=== PATIENT | female | born 1965 | race Caucasian/White ===

== ENCOUNTER → 2017-09-20 09:55 | Outpatient (CLI) | payer OTHER, SELFPAY ==
[2017-09-21 17:05] LABS: Amphetamine/Metha Screen,Urine Negative ng/mL (<1000); Barbiturates Screen,Urine Negative ng/mL (<200); Benzodiazepines Screen,Urine Negative ng/mL (200); Cannabinoid Screen,Urine Negative ng/mL (<50); Cocaine Screen,Urine Negative ng/g (<300); Methadone Screen,Urine Negative ng/mL (<300); Opiate Screen,Urine Negative ng/mL (<300); Phencyclidine Screen,Urine Negative ng/mL (<25)
== END ==
PROVIDERS: Visit Provider Nurse Practitioner Family
DX: Z79.899 Other long term (current) drug therapy (principal)
CPT/HCPCS: 80305

== ENCOUNTER → 2017-09-20 15:24 | Outpatient (CLI) | payer OTHER, SELFPAY | LOC: RAD 15:27 → RT 15:30 | PROVIDERS: Family Provider Emergency Medicine; PCP Emergency Medicine; Visit Provider Surgery | DX: M79.604 Pain in right leg (principal); M79.89 Other specified soft tissue disorders | CPT/HCPCS: 93971 ==

== ENCOUNTER → 2017-09-21 09:55 | Outpatient (REF) | payer OTHER, SELFPAY | LOC: LAB 09:55 | PROVIDERS: Visit Provider Nurse Practitioner Family | DX: Z79.899 Other long term (current) drug therapy (principal) ==

== ENCOUNTER → 2017-10-04 12:36 | Outpatient (CLI) | payer OTHER, SELFPAY ==
--- NOTE | 2017-10-04 12:39 | MM_ITS ---
MM Dig mamm DX unilat RT CAD, US breast RT complete COMPARISON: Mammogram of 02/17 and 02/11/2016 as well as older ultrasound 02/15/2016. INDICATION: 6 month follow-up right breast, history of breast cancer ORDERING PHYSICIAN: Pawel Bob MD PATIENT AGE: 52 years TECHNIQUE: Standard images performed along with problem-solving views and right breast ultrasound FINDINGS: RIGHT MAMMOGRAM: There was some asymmetric density in the outer aspect of the right breast. This however did appear to compress out consistent with postsurgical changes. No discrete mass or malignant appearing microcalcification is evident. The asymmetric density in the lateral aspect of the right breast has somewhat decreased compared to the previous exam consistent with improvement in postsurgical scarring. No malignant appearing mass or malignant appearing microcalcification. RIGHT BREAST ULTRASOUND WITH AXILLA: COMPARISON is made to 03/08/2017. There is a 2.4 x 1.3 cm area of complex echogenicity with central lucency and peripheral decreased echogenicity at the 8:00 position. This is in the same spot as the previously noted fluid collection previously measuring 3.7 x 2 cm consistent with contraction of scarring with a small residual seroma/hematoma. IMPRESSION: Postsurgical changes lateral aspect of the right breast. No convincing evidence of malignancy On the ultrasound there is a residual 2.4 x 1.3 similar hypoechoic area with central anechoic region probably related to damion scar/hematoma. Continued follow-up recommended. This is smaller when compared to the previous exam BI-RADS Category: 3 Benign Finding Short Term Follow-up RECOMMENDED FOLLOW-UP: 6M - 6 MONTH FOLLOW-UP bilateral mammogram and right breast ultrasound (A letter has been sent to the patient regarding results of the study.)
== END ==
PROVIDERS: Family Provider Emergency Medicine; PCP Emergency Medicine; Visit Provider Surgery
DX: Z85.3 Personal history of malignant neoplasm of breast (principal)
CPT/HCPCS: 76641; 77065

== ENCOUNTER → 2017-11-01 13:02 | Outpatient (CLI) | payer OTHER, SELFPAY ==
[2017-11-01 13:41] LABS: Basophils # 0.1 K/mm3 (0-0.2); Basophils % 0.7 % (0.1-2.0); Eosinophils # 0.5 K/mm3 (0.0-0.4); Eosinophils % 7.2 % (0.1-12.0); Hematocrit 40.1 % (37.0-47.0); Lymphocytes # 2.1 K/mm3 (0.7-4.5); Mean Corpuscular HGB Conc 32.4 g/dL (31.8-35.4); Mean Corpuscular Hemoglobin 29.8 pg (27.0-31.2); Mean Corpuscular Volume 91.8 fl (81-99); Mean Platelet Volume 7.3 fl (7.4-10.4); Monocytes # 0.4 K/mm3 (0.1-1.0); Monocytes % 6.2 % (1.7-9.3); Neutrophils # 3.4 K/mm3 (1.8-7.8); Neutrophils % 52.9 % (37.0-80.0); Platelet Count 432 K/mm3 (142-424); Red Blood Count 4.37 M/mm3 (4.20-5.40); Red Cell Distribution Width 14.2 % (11.5-17.5); White Blood Count 6.4 K/mm3 (4.8-10.8)
[2017-11-01 13:53] LABS: Alanine Aminotransferase 20 U/L (12-78); Albumin Level 3.6 gm/dL (3.4-5.0); Albumin/Globulin Ratio 0.8 (1.1-1.8); Alkaline Phosphatase 89 U/L (46-116); Anion Gap 13.5 mEq/L (5-15); Aspartate Amino Transferase 16 U/L (15-37); Bilirubin,Total 0.1 mg/dL (0.2-1.0); Blood Urea Nitrogen 15 mg/dL (7-18); Carbon Dioxide 26 mmol/L (21.0-32.0); Chloride 103 mmol/L (98-107); Creatinine,Serum 0.87 mg/dL (0.55-1.02); Estimated Glomerular Filt Rate 68 ml/min (>60); GFR (African American) 83 ML/MIN (>60); Globulin 4.4 gm/dl (1.3-3.2); Glucose 91 mg/dL (74-106); Potassium 4.5 mmoL/L (3.5-5.1); Sodium 138 mmol/L (136-145); Thyroid Stimulating Hormone 2.48 uIU/ml (0.358-3.740)
== END ==
PROVIDERS: Visit Provider Nurse Practitioner
DX: C50.911 Malignant neoplasm of unspecified site of right female breast (principal); R53.83 Other fatigue; M19.90 Unspecified osteoarthritis, unspecified site
CPT/HCPCS: 36415; 80053; 84443; 85025

== ENCOUNTER → 2017-11-05 13:13 | Outpatient (CLI) | payer OTHER, SELFPAY ==
--- NOTE | 2017-11-05 13:30 | XR_ITS ---
XR DEXA axial skeleton HISTORY: ITS.REASON: OSTEOARTHRITIS,FATIGUE,BREAST CA ORDERING PHYSICIAN: Stephanie Meyers PATIENT AGE: 52 years COMPARISON: None FINDINGS: The BMD measured at the Right femoral neck is 0.817 g/cm squared with a T score of -1.6 . This is considered Osteopenic according to the World Health Organization criteria. Fracture risk is Moderate. Treatment is advised. L1 L4 density has a T score of -1.5 consistent with osteopenia IMPRESSION: Osteopenia with moderate fracture risk. Treatment is advised. Recommend follow-up exam November 2019
== END ==
PROVIDERS: Family Provider Emergency Medicine; PCP Emergency Medicine; Visit Provider Nurse Practitioner
DX: M19.90 Unspecified osteoarthritis, unspecified site (principal); R53.83 Other fatigue; C50.911 Malignant neoplasm of unspecified site of right female breast; M85.80 Other specified disorders of bone density and structure, unspecified site
CPT/HCPCS: 77080

== ENCOUNTER 2017-11-19 16:35 | Emergency (ER) | payer OTHER, SELFPAY ==
[2017-11-19 16:35] VITALS: BP 153/110; PULSE 94; RESP 18; TEMP 36.4; O2SAT 100; BMI 31.3
--- NOTE | 2017-11-19 16:47 | XR_ITS ---
XR shoulder LT min 2V COMPARISON: Left shoulder 04/01/2014 HISTORY: Left shoulder pain TECHNIQUE: 3 views left shoulder FINDINGS: The clavicle is intact and the AC joint appears normal. The humeral head and glenoid appear normal and there are no soft tissue calcifications. There are old healed fractures of the left third through eighth ribs posteriorly which are not seen on the previous shoulder film in March 2014. IMPRESSION: Grossly negative left shoulder
--- NOTE | 2017-11-19 18:04 | HMH.EDUPEXT ---
ED Disposition Clinical Impression: Sprain of left shoulder Disposition: Home, Self-Care Condition on Discharge: Good Instructions: Sprain Additional Instructions: Please alternate Motrin with Tylenol for pain control, apply an ice pack to the affected area, will keep the left upper extremity in a sling, follow-up with orthopedic surgeon listed in the discharge instructions if not better within 2 days. Referrals: Yoan Begum MD [Staff Physician] - Time of Disposition: 18:04 - Critical Care Critical Care Time: No Attestation: On 11/19/17, the high probability of a clinically significant, sudden or life threatening deterioration of the following system(s) required my full and direct attention, intervention and personal management. The time I documented below is in addition to time spent performing reported procedures but includes the following listed in this critical care notation. Medical Decision Making - Medical Records Medical records reviewed: Yes: I reviewed the patient's medical records. - Damaso Inquiry Pt receiving controlled substance: No Vital Signs: 11/19/17 16:35 Temperature 97.6 F Temperature Source Oral Pulse Rate [Left Radial] 94 H Respiratory Rate 18 Blood Pressure [Left Arm] 153/110 Blood Pressure Mean [Left Arm] 124 Blood Pressure Source [Left Arm] Automatic Cuff Blood Pressure Position [Left Arm] Sitting 02 Sat by Pulse Oximetry 100 Oxygen Delivery Method Room Air - Radiology Data #1 Image(s): Shoulder (Left) Image Reviewed: Yes I reviewed the patient's radiology image Preliminary Findings: Normal/NAD Upper Extremity HPI - General Chief Complaint: Extremity Injury, Upper Stated Complaint: AO 11/18/17 Left Shoulder Pain Time Seen by Provider: 11/19/17 18:05 Mode of Arrival: Ambulatory Limitations: No Limitations Description of Symptoms (Recalled from ER Triage Doc. by RN): Pt reports feels like her L shoulder is out of place, states was playing with her grandkids yesterday and injured it. - History of Present Illness HPI narrative: Patient was horse playing with grandchildren and injured her left shoulder. She has a history of previous left shoulder dislocation in the past. complaint: injury to: left Onset (ago): minute(s) (30) Other Extremity Injury: Left: shoulder Other injuries: none Handedness: right Place: home Severity: mild Severity scale (1-10): 2 Relieving factors: rest Exacerbating factors: movement of extremity Context: sports-related injury Associated symptoms: denies other symptoms - Related Data Home Medications Medication Instructions Recorded Confirmed albuterol sulfate HFA 90 2 puff INHALATION Q4H g 09/20/17 mcg/actuation aerosol inhaler divalproex ER 250 mg 500 mg PO ONCE 09/20/17 tablet,extended release 24 hr fluticasone 100 mcg-vilanterol 25 1 inh INHALATION Q24H 09/20/17 mcg/dose powder for inhalation sertraline 100 mg tablet 100 mg PO QDAY 09/20/17 Previous Rx's Medication Instructions Recorded gabapentin 400 mg capsule 400 mg PO TID #90 cap 09/20/17 hydroxyzine pamoate 25 mg capsule 25 mg PO QHS #30 cap 09/20/17 venlafaxine 75 mg tablet 75 mg PO BID #60 tab 11/14/17 mirtazapine 15 mg tablet 15 mg PO QHS #30 tab 11/16/17 Allergies Allergy/AdvReac Type Severity Reaction Status Date / Time Sulfa (Sulfonamide Allergy Unknown Verified 11/01/17 15:43 Antibiotics) [SULFA (SULFONAMIDE ANTIBIOTICS)] [facility] History I have reviewed the patient's past medical history: Yes Medical History: Reports:: Cancer (Breast Ca), Chronic Obstructive Pulmonary Disease (COPD), Migraine Denies:: Diabetes Mellitus Type 1, Diabetes Mellitus Type 2 Comment: anxiety, depression Laterality Cases: Right: Lumpectomy Other Surgeries: Yes: No Previous Surgery - Social History Smoking Status: Current every day smoker Tobacco Type: cigarettes Alcohol Intake: never - Psychiatric History Expresses thoughts
[2017-11-19 18:12] VITALS: BP 142/110; PULSE 92; RESP 16; TEMP 36.4; O2SAT 97
== END 2017-11-19 18:15 | disposition home or self-care (01) ==
PROVIDERS: Emergency Provider Emergency Medicine; Family Provider Emergency Medicine; PCP Emergency Medicine
DX: S43.402A Unspecified sprain of left shoulder joint, initial encounter (principal); F17.210 Nicotine dependence, cigarettes, uncomplicated; F41.8 Other specified anxiety disorders; J44.9 Chronic obstructive pulmonary disease, unspecified; Z88.2 Allergy status to sulfonamides; X50.0XXA Overexertion from strenuous movement or load, initial encounter; Y92.019 Unspecified place in single-family (private) house as the place of occurrence of the external cause
CPT/HCPCS: 73030; 99283

== ENCOUNTER → 2018-02-26 10:34 | Outpatient (REF) | payer OTHER, SELFPAY ==
[2018-02-26 14:35] LABS: Amphetamine/Metha Screen,Urine Negative ng/mL (<1000); Barbiturates Screen,Urine Negative ng/mL (<200); Benzodiazepines Screen,Urine Negative ng/mL (200); Cannabinoid Screen,Urine Negative ng/mL (<50); Cocaine Screen,Urine Negative ng/g (<300); Methadone Screen,Urine Negative ng/mL (<300); Opiate Screen,Urine Negative ng/mL (<300); Phencyclidine Screen,Urine Negative ng/mL (<25)
== END ==
LOC: LAB 10:34
PROVIDERS: Visit Provider Nurse Practitioner Family
DX: F41.9 Anxiety disorder, unspecified (principal); Z79.899 Other long term (current) drug therapy
CPT/HCPCS: 80305

== ENCOUNTER → 2018-03-29 09:35 | Outpatient (REF) | payer OTHER, SELFPAY ==
[2018-03-29 14:28] LABS: Amphetamine/Metha Screen,Urine Negative ng/mL (<1000); Barbiturates Screen,Urine Negative ng/mL (<200); Benzodiazepines Screen,Urine Negative ng/mL (<200); Cannabinoid Screen,Urine Negative ng/mL (<50); Cocaine Screen,Urine Negative ng/mL (<300); Methadone Screen,Urine Negative ng/mL (<300); Opiate Screen,Urine Negative ng/mL (<300); Phencyclidine Screen,Urine Negative ng/mL (<25)
== END ==
LOC: LAB 09:35
PROVIDERS: Visit Provider Nurse Practitioner Family
DX: Z79.899 Other long term (current) drug therapy (principal)
CPT/HCPCS: 80305

== ENCOUNTER → 2018-04-01 13:19 | Outpatient (CLI) | payer OTHER, SELFPAY ==
--- NOTE | 2018-04-01 13:21 | US_ITS ---
MM Dig mamm BI DX w/CAD, US breast RT complete INDICATION: 6 month follow-up abnormal mammogram and breast ultrasound ORDERING PHYSICIAN: Pawel Bbo MD PATIENT AGE: 52 years COMPARISON: 10/04/2017, 03/08/2017 TECHNIQUE: Standard images performed along with problem-solving views and right breast ultrasound FINDINGS: There is average fibroglandular tissue. No malignant appearing mass or malignant appearing microcalcification is evident. The area of asymmetric density in the lateral aspect of the right breast has improved with only some minimal residual opacity in this area. The left breast has an unremarkable appearance. Right breast ultrasound: There remains an area of decreased echogenicity in the 8:00 region of the right breast measuring 1.8 x 1 cm consistent with an area of scarring.. Some scarring is also noted in the right axilla. IMPRESSION: Postsurgical changes, no evidence of malignancy. BI-RADS Category: 2 Benign Finding(s) RECOMMENDED FOLLOW-UP: 1YR - 1 YEAR FOLLOW-UP (A letter has been sent to the patient regarding results of the study.)
== END ==
PROVIDERS: Family Provider Emergency Medicine; PCP Emergency Medicine; Visit Provider Surgery
DX: R92.8 Other abnormal and inconclusive findings on diagnostic imaging of breast (principal); Z85.3 Personal history of malignant neoplasm of breast
CPT/HCPCS: 76641; 77066

== ENCOUNTER → 2018-06-19 16:57 | Outpatient (REF) | payer OTHER, SELFPAY ==
[2018-06-19 20:17] LABS: Amphetamine/Metha Screen,Urine Negative ng/mL (<1000); Barbiturates Screen,Urine Negative ng/mL (<200); Benzodiazepines Screen,Urine Negative ng/mL (<200); Cannabinoid Screen,Urine Negative ng/mL (<50); Cocaine Screen,Urine Negative ng/mL (<300); Methadone Screen,Urine Negative ng/mL (<300); Opiate Screen,Urine Negative ng/mL (<300); Phencyclidine Screen,Urine Negative ng/mL (<25)
== END ==
LOC: LAB 16:57
PROVIDERS: PCP Nurse Practitioner Family; Visit Provider Nurse Practitioner Family
DX: Z79.899 Other long term (current) drug therapy (principal)
CPT/HCPCS: 80305

== ENCOUNTER → 2018-08-14 19:01 | Outpatient (CLI) | payer OTHER, SELFPAY ==
[2018-08-14 22:34] LABS: Amphetamine/Metha Screen,Urine Negative ng/mL (<1000); Barbiturates Screen,Urine Negative ng/mL (<200); Benzodiazepines Screen,Urine Negative ng/mL (<200); Cannabinoid Screen,Urine Negative ng/mL (<50); Cocaine Screen,Urine Negative ng/mL (<300); Methadone Screen,Urine Negative ng/mL (<300); Opiate Screen,Urine Negative ng/mL (<300); Phencyclidine Screen,Urine Negative ng/mL (<25)
== END ==
PROVIDERS: Visit Provider Nurse Practitioner Family
DX: Z79.899 Other long term (current) drug therapy (principal)
CPT/HCPCS: 80305

== ENCOUNTER 2018-09-05 15:03 | Outpatient (CLI) | payer OTHER, SELFPAY ==
[2018-09-05 15:20] VITALS: BP 158/98; PULSE 90; RESP 20; TEMP 36.5; O2SAT 97
== END 2018-09-05 15:34 | disposition home or self-care (01) ==
LOC: INF 15:03
PROVIDERS: Visit Provider Internal Medicine Medical Oncology
DX: M85.89 Other specified disorders of bone density and structure, multiple sites (principal)
CPT/HCPCS: 96372; J0897

== ENCOUNTER → 2018-09-18 18:44 | Outpatient (CLI) | payer OTHER, SELFPAY ==
[2018-09-18 19:09] LABS: Basophils # 0.1 K/mm3 (0-0.2); Basophils % 0.7 % (0.1-2.0); Eosinophils # 0.3 K/mm3 (0.0-0.4); Eosinophils % 2.7 % (0.1-12.0); Hematocrit 40.7 % (37.0-47.0); Hemoglobin 12.2 g/dL (12.2-16.2); Lymphocytes # 2.2 K/mm3 (0.7-4.5); Lymphocytes % 23.2 % (10-50); Mean Corpuscular HGB Conc 29.9 g/dL (31.8-35.4); Mean Corpuscular Hemoglobin 29.1 pg (27.0-31.2); Mean Corpuscular Volume 97.1 fl (81-99); Mean Platelet Volume 7.8 fl (7.4-10.4); Monocytes # 0.8 K/mm3 (0.1-1.0); Monocytes % 8.5 % (1.7-9.3); Neutrophils # 6.2 K/mm3 (1.8-7.8); Neutrophils % 64.9 % (37.0-80.0); Platelet Count 421 K/mm3 (142-424); Red Blood Count 4.19 M/mm3 (4.20-5.40); Red Cell Distribution Width 14.7 % (11.5-17.5); White Blood Count 9.6 K/mm3 (4.8-10.8)
[2018-09-18 19:43] LABS: Alanine Aminotransferase 20 U/L (12-78); Albumin Level 3.7 gm/dL (3.4-5.0); Alkaline Phosphatase 101 U/L (46-116); Anion Gap 13.1 mEq/L (5-15); Aspartate Amino Transferase 24 U/L (15-37); Bilirubin,Total 0.3 mg/dL (0.2-1.0); Blood Urea Nitrogen 17 mg/dL (7-18); Calcium 8.9 mg/dL (8.5-10.1); Carbon Dioxide 28 mmol/L (21.0-32.0); Chloride 104 mmol/L (98-107); Creatinine,Serum 0.65 mg/dL (0.55-1.02); Estimated Glomerular Filt Rate 95 ml/min (>60); Free Thyroxine Index 2.4 ug/dL (5.93-13.13); GFR (African American) 115 ML/MIN (>60); Globulin 3.6 gm/dl (1.3-3.2); Glucose 96 mg/dL (74-106); Potassium 5.1 mmoL/L (3.5-5.1); Sodium 140 mmol/L (136-145); T4 (Thyroxine) 7.3 ug/dl (4.7-13.3); Thyroid Stimulating Hormone 2.91 uIU/ml (0.358-3.740); Total Protein,Serum 7.3 gm/dL (6.4-8.2); Triiodothryronine (T3) Uptake 33 % (31-39)
[2018-09-18 19:55] LABS: Erythrocyte Sedimentation Rate 25 mm/hr (0-30)
[2018-09-20 17:18] LABS: Vitamin D 25 Hydroxy 14.3 ng/mL (30.0-100.0)
== END ==
PROVIDERS: Visit Provider Emergency Medicine
DX: R53.83 Other fatigue (principal)
CPT/HCPCS: 80053; 82652; 84436; 84443; 84479; 85025; 85651

== ENCOUNTER → 2018-10-16 14:05 | Outpatient (CLI) | payer OTHER, SELFPAY | PROVIDERS: Visit Provider Emergency Medicine | DX: R53.1 Weakness (principal) | CPT/HCPCS: 87086 ==

== ENCOUNTER → 2018-10-29 08:24 | Outpatient (CLI) | payer OTHER, SELFPAY ==
--- NOTE | 2018-10-29 08:25 | US_ITS ---
US gallbladder HISTORY: Mid abdominal pain ITS.REASON: stomach pain ORDERING PHYSICIAN: Layo Yoo MD PATIENT AGE: 53 years Comparison: None FINDINGS: PANCREAS: Unremarkable. No obvious mass or abnormal fluid collection. No ductal dilatation LIVER: No focal liver lesions demonstrated. Homogeneous echogenicity. No intrahepatic biliary ductal dilatation evident RIGHT KIDNEY: Unremarkable. Normal size and echogenicity. No hydronephrosis GALLBLADDER: No gallstones, gallbladder wall thickening, pericholecystic fluid, or biliary dilatation. Trace amount gallbladder sludge versus concentrated bile IMPRESSION: Trace amount gallbladder sludge versus concentrated bile otherwise negative gallbladder/right upper quadrant ultrasound . No gallstones apparent
== END ==
PROVIDERS: PCP Emergency Medicine; Visit Provider Emergency Medicine
DX: R10.9 Unspecified abdominal pain (principal)
CPT/HCPCS: 76705

== ENCOUNTER → 2018-11-26 14:14 | Outpatient (CLI) | payer OTHER, SELFPAY ==
[2018-11-26 15:02] LABS: Amphetamine/Metha Screen,Urine Negative ng/mL (<1000); Barbiturates Screen,Urine Negative ng/mL (<200); Benzodiazepines Screen,Urine Negative ng/mL (<200); Cannabinoid Screen,Urine Negative ng/mL (<50); Cocaine Screen,Urine Negative ng/mL (<300); Methadone Screen,Urine Negative ng/mL (<300); Opiate Screen,Urine Negative ng/mL (<300); Phencyclidine Screen,Urine Negative ng/mL (<25)
== END ==
LOC: LAB 14:14 → LAB.DROPOF 14:18
PROVIDERS: Visit Provider Nurse Practitioner Family
DX: Z79.899 Other long term (current) drug therapy (principal)
CPT/HCPCS: 80305

== ENCOUNTER → 2018-12-11 14:41 | Outpatient (CLI) | payer OTHER, SELFPAY ==
--- NOTE | 2018-12-11 14:42 | US_ITS ---
US Arterial Ankle Brachial Ind History: Claudication, bilateral rest pain, smoker ITS.REASON: skin changes ORDERING PHYSICIAN: Anisa Dominguez DPM PATIENT AGE: 53 years TECHNIQUE: Segmental pressures obtained of both right and left leg. These are compared to brachial blood pressure to yield index at each level sampled including summary SHWETA. The data sheets from the procedure are available in PACS FINDINGS Rest study only performed today No prior studies available for comparison. Blood pressures reported are in millimeters mercury. RIGHT LEG SHWETA = 1.15. RIGHT LEG TBI=0.78 Brachial BP: 150 Thigh BP: 189 Calf BP: 179 Ankle PT: 187 Ankle DP : 180 Digit =127 LEFT LEG SHWETA = 1.07 LEFT LEG TBI= 0.65 Brachial BPD: 162 Thigh BP: 164 Calf BP: 189 Ankle PT:173 Ankle DP: 161 Digit = 106 Pulses and waveforms: Normal IMPRESSION: The ABIs and TBI s as reported above are within normal limits. Waveforms and pulses are also unremarkable.
== END ==
PROVIDERS: PCP Emergency Medicine; Visit Provider Podiatrist
DX: R09.89 Other specified symptoms and signs involving the circulatory and respiratory systems (principal)
CPT/HCPCS: 93922

== ENCOUNTER 2019-02-18 10:00 | Outpatient (RCR) | payer OTHER, SELFPAY ==
--- NOTE | 2019-02-06 10:47 | HMH.PTOPEV ---
PT Outpatient Evaluation Rehab PT Outpatient Evaluation Start: 02/06/19 10:40 Freq: Status: Active Protocol: Document 02/06/19 10:40 SELENE (Rec: 02/06/19 10:47 SELENE [id number]) Electronically Signed By Marco Bateman, PT 02/06/19 10:40 Outpatient Therapy Subjective History Subjective History Pt reports h/o chronic L ankle pain beginning insidiously ~1 yr ago. Pt reports pain on ' top of' L ankle and laterally, increased w/wt. bearing activity. Pt reports Xrays revealed '[id number]' in the L ankle, however, reports read no acute findings. Chief Complaint Pain,Clicks,Swelling,Gives out /Unstable,Weakness Symptom Type Ache,Throb,Sharp,Dull Symptoms Relieved By Rest/Positioning,Ice Symptoms Aggravated By Standing,Walking Prior Functional Limitations Standing,Walking Current Functional Limitations Housework,Standing,Walking, Stairs Symptom Description Constant but Variable Level of pain today (0-10) 7 Pain scale - at its best (0-10) 7 Pain scale - at its worst (0-10) 10 Ankle/Foot Eval Gait Observation General Gait Pattern Observation Antalgic Gait,Wide Based Gait, Decrease Weight Bear (L) Assistive Device Ambulation Assistive Device None Palpation Tenderness left Ankle/Foot Palpation Findings Tenderness Ankle/Foot Palpation Overall Comment 3/4-global ATF TTP positive PTF TTP positive CF TTP positive Deltoid ligament TTP positive ROM Ankle/Foot Dorsiflexion w/Knee Extended +10 Active Range Motion (degrees) Ankle/Foot Plantar Flexion Active Range 10-60 of Motion (degrees) Ankle/Foot Eversion Active Range of 0-15 Motion (degrees) Ankle/Foot Inversion Active Range of 0-30 Motion (degrees) Ankle/Foot ROM Limitations Pain MMT Ankle Dorsiflexion Strength Grade 4- Good- Ankle Plantarflexion Strength Grade 4 Good Foot Eversion Strength Grade 3+ Fair+ Foot Inversion Strength Grade 3+ Fair+ Special Tests Ankle Anterior Drawer Test Positive Left Talar Tilt Test Positive Left Outpatient Therapy Assessment Impairments Problems/Impairmments Palpation Tenderness,Impaired Range of Motion,Impaired Strength,Impaired Gait Pattern ,Impaired Walking,Impaired Standing,Impaired Household
== END 2019-02-18 10:05 | disposition home or self-care (01) ==
LOC: PT 10:00
PROVIDERS: Visit Provider Podiatrist
DX: M25.372 Other instability, left ankle (principal); M19.072 Primary osteoarthritis, left ankle and foot
CPT/HCPCS: 97010; 97014; 97110; 97163; G0283

== ENCOUNTER 2019-03-05 10:00 | Outpatient (CLI) | payer OTHER, SELFPAY ==
[2019-03-05 10:20] VITALS: BP 116/83; PULSE 75; RESP 18; O2SAT 94
== END 2019-03-05 10:35 | disposition home or self-care (01) ==
LOC: INF 10:12
PROVIDERS: Visit Provider Internal Medicine Medical Oncology
DX: M85.89 Other specified disorders of bone density and structure, multiple sites (principal); C50.919 Malignant neoplasm of unspecified site of unspecified female breast
CPT/HCPCS: 96372; J0897

== ENCOUNTER → 2019-03-28 14:08 | Outpatient (CLI) | payer OTHER, SELFPAY ==
[2019-03-28 15:53] LABS: Amphetamine/Metha Screen,Urine Negative ng/mL (<1000); Barbiturates Screen,Urine Negative ng/mL (<200); Benzodiazepines Screen,Urine Negative ng/mL (<200); Cannabinoid Screen,Urine Negative ng/mL (<50); Cocaine Screen,Urine Negative ng/mL (<300); Methadone Screen,Urine Negative ng/mL (<300); Opiate Screen,Urine Negative ng/mL (<300); Phencyclidine Screen,Urine Negative ng/mL (<25)
== END ==
PROVIDERS: Visit Provider Nurse Practitioner Family
DX: Z79.899 Other long term (current) drug therapy (principal)
CPT/HCPCS: 80305

== ENCOUNTER → 2019-05-01 10:06 | Outpatient (CLI) | payer OTHER, SELFPAY ==
--- NOTE | 2019-05-01 10:16 | MM_ITS ---
PROCEDURE: MM DIG SCREENING MAMM BI W/CAD CLINICAL INDICATION: 1 yr fu There is a history of previous lumpectomy right breast with follow-up radiation for malignancy. COMPARISON: DXRT MM Dig mamm DX unilat RT CAD from 10/04/2017 DXBI MM Dig mamm BI DX w/CAD from 04/01/2018 TECHNIQUE: Standard CC and MLO images were obtained. R2 CAD reviewed. FINDINGS: Scattered fibroglandular densities are seen throughout both breasts. Again noted is minimal asymmetric fibroglandular markings in the outer quadrant right breast presumably representing post lumpectomy scarring. Minimal stable scarring is seen in the right axilla as well. There is no new or suspicious lesion in either breast and there are no suspicious microcalcifications. IMPRESSION: Fibrofatty parenchyma with no suspicious lesion seen BI-RAD Category: 2 Benign Finding(s) FOLLOW-UP: 1YR 1 Year Follow-up (A letter has been sent to the patient regarding results of the study.) Dictated by: Dr. Beto Garg MD 05/05/2019 14:57 Signed by: <Electronically signed by Dr. Beto Garg MD in [place]> 05/05/2019 14:57
== END ==
PROVIDERS: PCP Emergency Medicine; Visit Provider Surgery
DX: Z12.31 Encounter for screening mammogram for malignant neoplasm of breast (principal)
CPT/HCPCS: 77067

== ENCOUNTER → 2019-05-16 08:29 | Outpatient (CLI) | payer OTHER, SELFPAY ==
--- NOTE | 2019-05-16 08:30 | US_ITS ---
PROCEDURE: US KIDNEY CLINICAL INDICATION: Left renal lesion COMPARISON: ABDPELW/O CT ABD PELVIS W/O CONTRAST from 06/26/2017 reviewed FINDINGS: On an outside CT scan report a nodule was noted along the lower pole of the left kidney. The right kidney measures 11 x 5 x 5 cm. There is cortical thinning. No hydronephrosis. The left kidney is 12 x 6 x 7 cm with mild cortical thinning along the lower pole. There is a 15 mm cyst along the lower pole of the left kidney. No solid mass evident. IMPRESSION: Bilateral renal cortical thinning with a 15 mm cyst along the lower pole of the left kidney. Dictated by: Audi Funk MD 05/16/2019 09:44 Electronically signed by Audi Funk MD in [place] 05/16/2019 09:44
== END ==
PROVIDERS: PCP Emergency Medicine; Visit Provider Emergency Medicine
DX: N28.1 Cyst of kidney, acquired (principal)
CPT/HCPCS: 76770

== ENCOUNTER → 2019-09-30 17:20 | Outpatient (CLI) | payer MEDICAID, SELFPAY ==
[2019-09-30 18:42] LABS: Basophils # 0.1 K/mm3 (0-0.2); Basophils % 0.8 % (0.1-2.0); Eosinophils # 0.1 K/mm3 (0.0-0.4); Eosinophils % 1.4 % (0.1-12.0); Hematocrit 43.8 % (37.0-47.0); Hemoglobin 13.9 g/dL (12.2-16.2); Lymphocytes # 3.1 K/mm3 (0.7-4.5); Mean Corpuscular HGB Conc 31.8 g/dL (31.8-35.4); Mean Corpuscular Hemoglobin 29.1 pg (27.0-31.2); Mean Corpuscular Volume 91.2 fl (81-99); Mean Platelet Volume 8.7 fl (7.4-10.4); Monocytes # 0.6 K/mm3 (0.1-1.0); Monocytes % 6.5 % (1.7-9.3); Neutrophils # 4.9 K/mm3 (1.8-7.8); Neutrophils % 56.3 % (37.0-80.0); Platelet Count 536 K/mm3 (142-424); Red Cell Distribution Width 14.2 % (11.5-17.5); White Blood Count 8.7 K/mm3 (4.8-10.8)
[2019-09-30 19:12] LABS: Alanine Aminotransferase 16 U/L (12-78); Albumin Level 4.4 gm/dL (3.4-5.0); Albumin/Globulin Ratio 1.2 (1.1-1.8); Alkaline Phosphatase 93 U/L (46-116); Anion Gap 19.3 mEq/L (5-15); Aspartate Amino Transferase 20 U/L (15-37); Bilirubin,Total 0.2 mg/dL (0.2-1.0); Blood Urea Nitrogen 22 mg/dL (7-18); Calcium 9.3 mg/dL (8.5-10.1); Carbon Dioxide 21 mmol/L (21.0-32.0); Chloride 104 mmol/L (98-107); Chol/HDL Ratio 5.4 (1-3.5); Cholesterol 287 mg/dL (140-200); Creatinine,Serum 1.04 mg/dL (0.55-1.02); Estimated Glomerular Filt Rate 55 ml/min (>60); Free T4 (Free Thyroxine) 1.21 ng/dl (0.76-1.46); GFR (African American) 67 ML/MIN (>60); Globulin 3.8 gm/dl (1.3-3.2); Glucose 106 mg/dL (74-106); HDL Cholesterol 53 mg/dL (29-89); LDL Cholesterol 214 mg/dL (0-130); Potassium 4.3 mmoL/L (3.5-5.1); Sodium 140 mmol/L (136-145); Thyroid Stimulating Hormone 1.85 uIU/ml (0.358-3.740); Total Protein,Serum 8.2 gm/dL (6.4-8.2); Triglycerides 98 mg/dL (30-200); VLDL Cholesterol 20 mg/dL (0-40)
== END ==
PROVIDERS: Visit Provider Emergency Medicine
DX: R53.83 Other fatigue (principal)
CPT/HCPCS: 80053; 80061; 84439; 84443; 85025

== ENCOUNTER → 2019-10-28 08:23 | Outpatient (CLI) | payer MEDICAID, SELFPAY ==
--- NOTE | 2019-10-28 08:27 | XR_ITS ---
PROCEDURE: XR ANKLE WT BEARING RT MIN 3V CLINICAL INDICATION: pain Right ankle pain COMPARISON: ANKL3 ANKLE-LT-3 VIEWS from 04/27/2015 FINDINGS: No fracture or dislocation. No lytic or blastic change. The joint space is well preserved. The ankle mortise is preserved. The talar dome has an unremarkable appearance. There is a mildly prominent posterior talar process IMPRESSION: Mildly prominent posterior talar process otherwise negative right ankle Dictated by: Audi Funk MD 10/28/2019 10:25 Electronically signed by Audi Funk MD in [place] 10/28/2019 10:25
--- NOTE | 2019-10-28 08:27 | XR_ITS ---
PROCEDURE: XR HIP LT 2-3V W/PELVIS CLINICAL INDICATION: left hip pain COMPARISON: No exams were available for comparison FINDINGS: An AP view of the pelvis shows minimal osteoarthritic change of both hips with slight decrease in the joint space superiorly and minimal osteosclerosis of the acetabular roof. No fracture or dislocation. No lytic or blastic change. IMPRESSION: Minimal osteoarthritic change Dictated by: Audi Funk MD 10/28/2019 10:22 Electronically signed by Audi Funk MD in [place] 10/28/2019 10:22
--- NOTE | 2019-10-28 08:27 | XR_ITS ---
PROCEDURE: XR ANKLE WT BEARING LT MIN 3V CLINICAL INDICATION: pain Ankle pain COMPARISON: ANKL3 ANKLE-LT-3 VIEWS from 04/27/2015 FINDINGS: No fracture or dislocation. No lytic or blastic change. The ankle mortise is well preserved. The talar dome has an unremarkable appearance. The joint spaces are well preserved. IMPRESSION: Negative left ankle Dictated by: Audi Funk MD 10/28/2019 10:24 Electronically signed by Audi Funk MD in [place] 10/28/2019 10:24
--- NOTE | 2019-10-28 08:27 | XR_ITS ---
PROCEDURE: XR KNEE LT 4V CLINICAL INDICATION: left knee pain COMPARISON: No exams were available for comparison FINDINGS: No fracture or dislocation. No lytic or blastic change. There is normal mineralization. There are minimal osteoarthritic changes of the medial compartment. No other significant anomalies are evident. IMPRESSION: Minimal osteoarthritic change medial Dictated by: Audi Funk MD 10/28/2019 10:21 Electronically signed by Audi Funk MD in [place] 10/28/2019 10:21
== END ==
PROVIDERS: PCP Emergency Medicine; Visit Provider Orthopaedic Surgery
DX: M25.562 Pain in left knee (principal); M25.552 Pain in left hip; M25.572 Pain in left ankle and joints of left foot; M25.571 Pain in right ankle and joints of right foot
CPT/HCPCS: 73502; 73564; 73610

== ENCOUNTER → 2019-11-05 13:14 | Outpatient (CLI) | payer MEDICAID, SELFPAY ==
--- NOTE | 2019-11-05 13:26 | MR_ITS ---
PROCEDURE: MR ANKLE LT WO/W CON CLINICAL INDICATION: evaluate for chronic lateral ankle instability. Chronic lateral ankle instability with worsening pain and weakness COMPARISON: XR ANKLE WT BEARING LT MIN 3V from 10/28/2019 TECHNIQUE: Routine multiplanar multi echo sequences are performed without and with gadolinium enhancement. FINDINGS: The anterior tibiofibular ligament appears discontinuous along its inferior and tibial component with small amount of fluid at this region. Posterior tibiofibular ligament is intact. There is some thinning of the ATFL which could be due to an old injury. The ligament does not appear to be completely torn. The PT FL appears intact. The fibers of the deltoid ligament are sparse and could be due to a partial chronic tear. No edema evident at this region. The tendons about the ankle have an unremarkable appearance. No bone bruise or abnormal bone marrow signal intensity is evident. The ankle mortise is preserved. The talar dome has an unremarkable appearance. No abnormal enhancement. The Achilles tendon is unremarkable. Small amount of fluid is present along the posterior to talofibular region. There is a prominent posterior talar process. No edema is evident within the prominent posterior talar process. IMPRESSION: There is suggestion at least a partial tear of the anterior tibiofibular ligament. The anterior talofibular ligament is somewhat thinned and could be due to sprain or old injury. A complete tear is not felt to be present. Dictated by: Audi Funk MD 11/07/2019 08:35 Electronically signed by Audi Funk MD in [place] 11/07/2019 08:35
--- NOTE | 2019-11-05 14:07 | XR_ITS ---
PROCEDURE: XR ORBIT BILATERAL MIN 4V CLINICAL INDICATION: RULE OUT METAL FOREIGN BODY FOR MRI COMPARISON: No exams were available for comparison TECHNIQUE: AP views are obtained of the orbits with the patient looking up and down. FINDINGS: No radio opaque foreign bodies evident. IMPRESSION: No radio opaque orbital foreign body identified. Dictated by: Audi Funk MD 11/05/2019 17:25 Electronically signed by Audi Funk MD in [place] 11/05/2019 17:25
== END ==
PROVIDERS: PCP Emergency Medicine; Visit Provider Podiatrist
DX: M19.072 Primary osteoarthritis, left ankle and foot (principal); M25.372 Other instability, left ankle; H05.53 Retained (old) foreign body following penetrating wound of bilateral orbits
CPT/HCPCS: 70200; 73723; A9576

== ENCOUNTER → 2019-11-12 15:24 | Outpatient (CLI) | payer MEDICAID, SELFPAY ==
--- NOTE | 2019-11-12 15:24 | MR_ITS ---
PROCEDURE: MR KNEE LT WO CON CLINICAL INDICATION: evaluate for a meniscal tear Left knee pain, fall with injury and pain COMPARISON: XR KNEE LT 4V from 10/28/2019 TECHNIQUE: Routine multiplanar multi echo sequences are performed without gadolinium enhancement. FINDINGS: The cruciate ligaments, collateral ligaments, quadriceps tendon, and patellar tendon have an unremarkable appearance. The patellar cartilage is well preserved. No obvious meniscal tear. There is a small knee joint effusion. No bone bruise or fracture. There is slight decrease in the joint space medially suggesting minimal osteoarthritic change IMPRESSION: 1. No internal derangement. 2. Minimal osteoarthritic change of the medial compartment with small knee joint effusion. Dictated by: Audi Funk MD 11/13/2019 12:16 Electronically signed by Audi Funk MD in [place] 11/13/2019 12:16
== END ==
PROVIDERS: PCP Emergency Medicine; Visit Provider Orthopaedic Surgery
DX: M17.12 Unilateral primary osteoarthritis, left knee (principal)
CPT/HCPCS: 73721

== ENCOUNTER 2020-02-13 16:34 | Emergency (ER) | payer MEDICAID, SELFPAY ==
[2020-02-13 16:50] VITALS: BP 120/84; PULSE 81; RESP 21; TEMP 36.7; O2SAT 96; BMI 24.3
--- NOTE | 2020-02-13 17:12 | HMH.EDUTC ---
[facility] – [place] Disposition Clinical Impression: Otitis media Qualifiers: Otitis media type: unspecified Laterality: bilateral Qualified Code(s): H66.93 - Otitis media, unspecified, bilateral Sinusitis Qualifiers: Sinusitis location: unspecified location Chronicity: unspecified Qualified Code(s): J32.9 - Chronic sinusitis, unspecified Disposition: Home, Self-Care Condition on Discharge: Good Instructions: Middle Ear Infection, Middle Ear Infections (Alternative Therapy), Amoxicillin Additional Instructions: *Monitor Temp, Over the counter Motrin or Tylenol as directed/as needed Tylenol every 4 hours and Motrin every 6 hours (as long as your family doctor has told you that you can take it) for fever or pain. and straight to ER if unable to lower temp less than 101.0 after medication given *Warm salt water gargles may help to soothe the throat *Throat Lozenges *Warm fluids like tea with honey may help to soothe the throat *Sleep elevated *Humidifier/Vaporizer *Flonase 2 sprays in each nostril daily but be aware that it may take 2-3 days before you notice improvement Follow up with family doctor if no improvement or any worsening of symptoms Straight to ER if any life threatening symptoms Straight to ER if any life threatening symptoms Follow up IMMEDIATELY for new or worsening symptoms or no Noticeable improvement over the next 48-72 hours. 911 for difficulty breathing or swallowing Prescriptions: Amoxicillin [Amoxicillin 500mg Cap] 500 mg PO TID #30 cap Transmission Status: Pending to [facility] Fluticasone Propionate [Flonase 50mcg nasal spray 16gm] 1 spr NS DAILY #1 bottle Transmission Status: Pending to [facility] methylPREDNISolone [Medrol 4mg tab] 4 mg PO DIRECTED #21 tab Transmission Status: Pending to [employer] Referrals: Layo Yoo MD [Primary Care Provider] - Medical Decision Making - Damaso Inquiry Pt receiving controlled substance: No Damaso was queried for this patient: No Vital Signs: 02/13/20 16:50 Temperature 98.1 F Temperature Source Oral Pulse Rate [Right Brachial] 81 Respiratory Rate 21 Blood Pressure [Right Arm] 120/84 Blood Pressure Mean [Right Arm] 96 Blood Pressure Source [Right Arm] Automatic Cuff Blood Pressure Position [Right Arm] Sitting 02 Sat by Pulse Oximetry 96 Oxygen Delivery Method Room Air - Reevaluation(s) Time: 17:26 Reevaluation #1: Patient state that she has taken amoxicillin and medrol dose pack before without complications or problems Medical Decision Narrative: discussed with patient that she could be transferred to ED for further evaluation of dizziness and states that she is not feeling dizzy at this time that this comes and goes and would return to ED if dizziness returned declined transfer at this time [facility] [place] HPI - General Stated complaint: Ear pain Time Seen by Provider: 02/13/20 17:12 Mode of Arrival: Ambulatory Source of Information: Patient Limitations: No Limitations Description of Symptoms (Recalled from Triage Doc. by RN): PATIENT C/O BILATERAL EARACHE WITH DIZZINESS AND DECREASED HEARING X 2 WEEKS. DENIES ANY OTHER SYMPTOMS HEENT Symptoms (Recalled from RN notes): Yes Resp Symptoms (Recalled from RN notes): No Skin Symptoms (Recalled from RN notes): No MS Symptoms (Recalled from RN notes): No Functional Status (Recalled from RN notes): WNL - History of Present Illness Provider Complaint: Patient states that her ears have been hurting her for about 2 weeks and has got worse and at times when she moves quickly she feels like she gets dizzy States that the dizziness comes and goes and feels like she may have some fluid in her ears and today the pain in her ears was worse so she came in to get it checked - Related Data Home Medications Medication Instructions Recorded Confirmed buspirone 5 mg tablet 5 mg PO BID 11/24/19 02/13/20 Atorvastatin Calcium [Atorvastatin 10 mg PO HS 02/13/20 02/13/20 10mg
[2020-02-13 17:27] VITALS: BP 120/84; PULSE 81; RESP 21; TEMP 36.7; O2SAT 96
== END 2020-02-13 17:30 | disposition home or self-care (01) ==
PROVIDERS: Emergency Provider Nurse Practitioner; PCP Emergency Medicine
DX: H66.93 Otitis media, unspecified, bilateral (principal); J32.9 Chronic sinusitis, unspecified; I10 Essential (primary) hypertension; F41.8 Other specified anxiety disorders; E78.5 Hyperlipidemia, unspecified; Z88.2 Allergy status to sulfonamides; F17.210 Nicotine dependence, cigarettes, uncomplicated
CPT/HCPCS: 99201

== ENCOUNTER → 2020-03-31 16:52 | Outpatient (CLI) | payer MEDICAID, SELFPAY ==
[2020-03-31 17:58] LABS: Anion Gap 17.8 mEq/L (5-15); Blood Urea Nitrogen 15 mg/dl (7-17); Calcium 9.7 mg/dl (8.4-10.2); Carbon Dioxide 21 mmol/L (22.0-30.0); Chloride 108 mmol/L (98-107); Estimated Glomerular Filt Rate 75 ml/min (>60); GFR (African American) 90 ML/MIN (>60); Glucose 85 mg/dl (74-100); Potassium 4.8 mmoL/L (3.5-5.1); Sodium 142 mmol/L (136-145)
== END ==
PROVIDERS: Visit Provider Physician Assistant
DX: M54.30 Sciatica, unspecified side (principal); N39.0 Urinary tract infection, site not specified; N17.9 Acute kidney failure, unspecified; N18.9 Chronic kidney disease, unspecified
CPT/HCPCS: 80048; 87086

== ENCOUNTER 2020-04-06 16:41 | Emergency (ER) | payer MEDICAID, SELFPAY ==
[2020-04-06 16:49] VITALS: BP 124/79; PULSE 86; RESP 18; TEMP 36.8; O2SAT 98; BMI 27.3
--- NOTE | 2020-04-06 17:05 | XR_ITS ---
PROCEDURE: XR LUMBAR SPINE 2-3V CLINICAL INDICATION: Pain COMPARISON: No exams were available for comparison FINDINGS: There is normal alignment. No fracture or dislocation is evident. There is mild degenerative disc disease T12-L4. No lytic or blastic change. Incidental note is made of a 3 mm calcific density overlying the left mid abdominal region and could be due to a renal stone. There is reversal of the thoracolumbar lordosis. IMPRESSION: Lumbar spondylosis with possible left nephrolithiasis Dictated b Audi Funk MD 04/06/2020 18:55 Audi Funk MD in [place] 04/06/2020 18:55
--- NOTE | 2020-04-06 17:25 | HMH.EDGENADL ---
ED Disposition Clinical Impression: Lumbar sprain Qualifiers: Encounter type: initial encounter Qualified Code(s): S33.5XXA - Sprain of ligaments of lumbar spine, initial encounter Disposition: Home, Self-Care Condition on Discharge: Good Instructions: DI for Acute Pain -- Adult Additional Instructions: Take muscle relaxers needed. If you have any new, changing, worsening, or concerning symptoms, come back to the emergency department. Prescriptions: Cyclobenzaprine HCl [Cyclobenzaprine 5mg Tab] 5 mg PO Q8H 3 Days #9 tab Transmission Status: Received by [facility] #[id number] Referrals: Layo Yoo MD [Primary Care Provider] - Time of Disposition: 19:38 - Critical Care Critical Care Time: No Attestation: On 04/06/20, the high probability of a clinically significant, sudden or life threatening deterioration of the following system(s) required my full and direct attention, intervention and personal management. The time I documented below is in addition to time spent performing reported procedures but includes the following listed in this critical care notation. Medical Decision Making - Medical Records MR Comment: 54-year-old female presents emergency department with back pain after picking up and carrying her granddaughter a couple of days ago. She arrives to the ED hemodynamically stable, with reassuring vital signs, and looks well on exam. She has no concerning red flag symptoms of spinal cord compression or cauda equina. She has no neurologic deficits in her lower extremities, there is no weakness. She points to her right side of her lumbar back to where the pain hurts the most, this is very likely musculoskeletal based on the history and physical. Will treat with Toradol and cyclobenzaprine and reassess. X-ray of the lumbar spine showing possible kidney stone on the left, she has no left-sided pain and she has known kidney stone there. - Damaso Inquiry Pt receiving controlled substance: No Vital Signs: 04/06/20 16:49 04/06/20 18:42 04/06/20 19:59 Temperature 98.2 F 98.7 F Temperature Source Oral Pulse Rate 90 Pulse Rate [Right Brachial] 86 75 Respiratory Rate 18 16 Blood Pressure 138/89 Blood Pressure [Right Arm] 124/79 115/72 Blood Pressure Mean [Right Arm] 94 86 Blood Pressure Source Automatic Cuff Blood Pressure Source [Right Arm] Automatic Cuff Automatic Cuff Blood Pressure Position Sitting Blood Pressure Position [Right Arm] Sitting Sitting 02 Sat by Pulse Oximetry 98 98 Oxygen Delivery Method Room Air Room Air Orders (Tests/Meds): ED MEDICATIONS Discontinued Medications Generic Name Dose Route Start Last Admin Trade Name Louie PRN Reason Stop Dose Admin Cyclobenzaprine HCl 5 mg 04/06/20 17:25 04/06/20 17:34 Flexeril 10mg Tablet PO 04/06/20 17:26 5 mg ONCE ONE Administration Ketorolac Tromethamine 30 mg 04/06/20 17:24 04/06/20 17:33 Toradol 30mg/Ml Vial IM 04/06/20 17:25 30 mg ONCE ONE Administration General Adult HPI - General Chief complaint: PAIN Stated complaint: Lower back pain Time Seen by Provider: 04/06/20 18:00 Mode of Arrival: Ambulatory Limitations: No Limitations Description of Symptoms (Recalled from ER Triage Doc. by RN): Back pain - History of Present Illness HPI narrative: 54-year-old female with a history of hypertension and breast cancer in the past presents emergency department with back pain. It is on the right side. She states that she has been having this pain since picking up and carrying her granddaughter on Sunday. She states that nothing makes it better or worse. She denies any weakness, numbness, shooting pains in her lower extremities. She denies any difficulty urinating. No loss of urine or stool. No recent fever or chills. She denies any other symptoms or concerns at this time. - Related Data Home Medications Medication Instructions Recorded Confirmed buspirone 5 mg table
[2020-04-06 18:42] VITALS: BP 115/72; PULSE 75; O2SAT 98
[2020-04-06 19:59] VITALS: BP 138/89; PULSE 90; RESP 16; TEMP 37.1
== END 2020-04-06 20:01 | disposition home or self-care (01) ==
PROVIDERS: Emergency Provider Emergency Medicine; PCP Emergency Medicine
DX: S33.5XXA Sprain of ligaments of lumbar spine, initial encounter (principal); X50.0XXA Overexertion from strenuous movement or load, initial encounter; Y92.019 Unspecified place in single-family (private) house as the place of occurrence of the external cause; I10 Essential (primary) hypertension; J44.9 Chronic obstructive pulmonary disease, unspecified; F41.8 Other specified anxiety disorders; E78.5 Hyperlipidemia, unspecified; G43.709 Chronic migraine without aura, not intractable, without status migrainosus; F17.210 Nicotine dependence, cigarettes, uncomplicated; Z88.2 Allergy status to sulfonamides; Z79.899 Other long term (current) drug therapy
CPT/HCPCS: 72100; 96372; 99282

== ENCOUNTER 2020-05-24 11:04 | Emergency (ER) | payer MEDICAID, SELFPAY ==
[2020-05-24 11:22] VITALS: BP 170/104; PULSE 75; RESP 21; TEMP 36.9; O2SAT 100; BMI 26.6
--- NOTE | 2020-05-24 11:31 | XR_ITS ---
PROCEDURE: XR CHEST 2V CLINICAL INDICATION: SOB COMPARISON: CR CXR CHEST(2 VIEWS-NOT PORTABLE) from 08/02/[address] CHEST W/ CONTRAST from 04/03/2016 CR CXR CHEST(2 VIEWS-NOT PORTABLE) from 05/17/2016 FINDINGS: Unremarkable cardiovascular structures. Lungs are clear. There are multiple old left-sided rib fractures. IMPRESSION: No change with no acute finding. Multiple old left-sided rib fractures. Dictated by: Audi Funk MD 05/24/2020 13:05 Audi Funk MD in [place] 05/24/2020 13:05
--- NOTE | 2020-05-24 12:14 | HMH.EDUTC ---
[facility] [place] Disposition Clinical Impression: COPD exacerbation, Exposure to COVID-19 virus, Tobacco dependence Disposition: Home, Self-Care Condition on Discharge: Good Instructions: Chronic Obstructive Pulmonary Disease, How to Quit Tobacco Products, Preventing the Spread of Coronavirus Discharge Instructions Additional Instructions: Drink plenty of fluids. Take tylenol or ibuprofen for pain or fever. Take the medications as directed. Follow up with your regular doctor. GO TO THE ER FOR ANY WORSENING SYMPTOMS Don't start the oral steroids until tomorrow, since you had the shot here today. FOLLOW THE DIRECTIONS ON THE COVID-19 HAND OUT THAT WE GAVE YOU REGARDING SELF-ISOLATION UNTIL YOU KNOW YOUR COVID-19 RESULTS Prescriptions: methylPREDNISolone [Medrol] 4 mg PO DIRECTED 6 Days #21 tab.ds.pk Transmission Status: Received by [facility] Benzonatate [Tessalon Perle 100mg Cap] 100 mg PO TIDP PRN #30 cap PRN Reason: Cough Transmission Status: Received by [facility] Azithromycin [Z-Binh 250mg Tab*] 250 mg PO UD DOSE PK #6 tab Transmission Status: Received by [facility] Referrals: Layo Yoo MD [Primary Care Provider] - Forms: Work/School Release Time of Disposition: 12:17 Medical Decision Making - Medical Records Medical records reviewed: No: I reviewed the patient's medical records. - Damaso Inquiry Pt receiving controlled substance: No Vital Signs: 05/24/20 11:22 05/24/20 12:19 Temperature 98.4 F 98.4 F Temperature Source Oral Oral Pulse Rate 75 Pulse Rate [Radial] 75 Respiratory Rate 21 21 Blood Pressure 170/104 H Blood Pressure [Right Arm] 170/104 H Blood Pressure Mean [Right Arm] 126 Blood Pressure Source Automatic Cuff Blood Pressure Source [Right Arm] Automatic Cuff Blood Pressure Position Sitting Blood Pressure Position [Right Arm] Sitting 02 Sat by Pulse Oximetry 100 Oxygen Delivery Method Room Air Room Air Orders (Tests/Meds): ED MEDICATIONS Discontinued Medications Generic Name Dose Route Start Last Admin Trade Name Freq PRN Reason Stop Dose Admin Ceftriaxone Sodium 1 gm 05/24/20 11:56 05/24/20 12:04 Rocephin 1gm Vial IM 05/24/20 11:57 1 gm ONCE ONE Administration Protocol Lidocaine HCl 0 ml 05/24/20 11:56 05/24/20 12:04 Lidocaine 1% 10ml Mdv IM 05/24/20 11:57 2.1 ml ONCE ONE Administration Methylprednisolone Sodium Succinate 125 mg 05/24/20 11:56 05/24/20 12:04 Solu-Medrol 125mg/2ml Vial IM 05/24/20 11:57 125 mg ONCE ONE Administration ORDERS Category Date Time Status Covid-19 Nasal PCR Sendout [facility] 05/24/20 11:50 Received - Radiology Data #1 Image(s): Chest Image Reviewed: Yes I reviewed the patient's radiology image, Yes I have reviewed radiologist's interpretation Preliminary Findings: No Infiltrates Seen PROCEDURE: XR CHEST 2V CLINICAL INDICATION: SOB COMPARISON: CR CXR CHEST(2 VIEWS-NOT PORTABLE) from 08/02/[address] CHEST W/ CONTRAST from 04/03/2016 CR CXR CHEST(2 VIEWS-NOT PORTABLE) from 05/17/2016 FINDINGS: Unremarkable cardiovascular structures. Lungs are clear. There are multiple old left-sided rib fractures. IMPRESSION: No change with no acute finding. Multiple old left-sided rib fractures. Dictated by: Audi Funk MD 05/24/2020 13:05 Audi Funk MD in [place] 05/24/2020 13:05 [facility] [place] HPI - General Stated complaint: soa, dizzy, ear pain Time Seen by Provider: 05/24/20 11:30 Mode of Arrival: Ambulatory Source of Information: Patient Limitations: No Limitations Description of Symptoms (Recalled from Triage Doc. by RN): Exposed to COVID, ear pain, sob HEENT Symptoms (Recalled from RN notes): Yes Resp Symptoms (Recalled from RN notes): Yes Skin Symptoms (Recalled from RN notes): No MS Symptoms (Recalled from RN notes): No Functional Status (Recalled from RN notes): wnl - History of Present Illness
[2020-05-24 12:19] VITALS: BP 170/104; PULSE 75; RESP 21; TEMP 36.9; O2SAT 100
[2020-05-25 16:18] LABS: Covid-19 Nasal PCR Sendout Lex Positive
--- NOTE | 2020-05-25 16:21 | PC.NURSE ---
Attempted to call patient to notify of patient's covid results, no answers.
--- NOTE | 2020-05-25 16:53 | PC.NURSE ---
Patient notified of positive COVID results. Educated on self quarantine and treatment of symptoms.
== END 2020-05-24 12:23 | disposition home or self-care (01) ==
PROVIDERS: Emergency Provider Nurse Practitioner Family; PCP Emergency Medicine
DX: J44.1 Chronic obstructive pulmonary disease with (acute) exacerbation (principal); Z20.828 Contact with and (suspected) exposure to other viral communicable diseases; I10 Essential (primary) hypertension; E78.5 Hyperlipidemia, unspecified; F41.8 Other specified anxiety disorders; G43.709 Chronic migraine without aura, not intractable, without status migrainosus; F17.210 Nicotine dependence, cigarettes, uncomplicated; Z79.899 Other long term (current) drug therapy; Z88.2 Allergy status to sulfonamides
CPT/HCPCS: 71046; 96372; 99202; U0004

== ENCOUNTER → 2020-06-08 16:11 | Outpatient (CLI) | payer MEDICAID, SELFPAY ==
[2020-06-08 17:32] LABS: Coronavirus 19 IgG Antibody Negative (Negative); Coronavirus 19 IgM Antibody Negative (Negative)
== END ==
PROVIDERS: PCP Emergency Medicine; Visit Provider Physician Assistant
DX: Z03.818 Encounter for observation for suspected exposure to other biological agents ruled out (principal)
CPT/HCPCS: 36415; 86328

== ENCOUNTER → 2020-10-25 10:25 | Outpatient (CLI) | payer MEDICAID, SELFPAY ==
--- NOTE | 2020-10-25 10:31 | XR_ITS ---
PROCEDURE: XR ANKLE WT BEARING LT MIN 3V CLINICAL INDICATION: pain, fall COMPARISON: CR ANKL3 ANKLE-LT-3 VIEWS from 04/27/2015 CR ANKCMLT XR ankle LT min 3V from 11/14/2018 CR XR ANKLE WT BEARING RT MIN 3V from 10/28/2019 CR XR ANKLE WT BEARING LT MIN 3V from 10/28/2019 FINDINGS: No fracture or dislocation. No lytic or blastic change. There is normal mineralization. The joint spaces are well-preserved. No significant degenerative/arthritic changes. No erosive changes evident. Other findings:None. IMPRESSION: No acute findings. Dictated by: Audi Funk MD 10/25/2020 11:39 Audi Funk MD in [facility] 10/25/2020 11:39
== END ==
PROVIDERS: PCP Emergency Medicine; Visit Provider Podiatrist
DX: M25.572 Pain in left ankle and joints of left foot (principal)
CPT/HCPCS: 73610

== ENCOUNTER → 2020-12-07 11:55 | Outpatient (CLI) | payer MEDICAID, SELFPAY ==
--- NOTE | 2020-12-07 12:04 | XR_ITS ---
PROCEDURE: XR HIP LT 2-3V W/PELVIS CLINICAL INDICATION: L Hip pain COMPARISON: CR XR HIP LT 2-3V W/PELVIS from 10/28/2019 FINDINGS: No fracture or dislocation is evident. No significant degenerative change. No lytic or blastic change. Unremarkable soft tissues. IMPRESSION: Negative left hip Dictated by: Audi Funk MD 12/07/2020 12:35 Audi Funk MD in [facility] 12/07/2020 12:35
== END ==
PROVIDERS: PCP Emergency Medicine; Visit Provider Emergency Medicine
DX: M25.552 Pain in left hip (principal)
CPT/HCPCS: 73502

== ENCOUNTER 2020-12-23 21:00 | Inpatient (IN) | payer MEDICAID, SELFPAY ==
[2020-12-23 21:10] VITALS: BP 150/66; PULSE 80; RESP 16; TEMP 36.8; O2SAT 97; BMI 29.7
--- NOTE | 2020-12-23 21:51 | XR_ITS ---
PROCEDURE: XR CHEST 2V CLINICAL HISTORY: pre-surgical History of shortness of breath and vascular disease COMPARISON: CR CXR CHEST(2 VIEWS-NOT PORTABLE) from 08/02/[address] CHEST W/ CONTRAST from 04/03/2016 CR CXR CHEST(2 VIEWS-NOT PORTABLE) from 05/17/2016 CR XR CHEST 2V from 05/24/2020 FINDINGS: The cardiomediastinal silhouette and pulmonary vascularity are within normal limits. The lungs are clear without infiltrates, suspicious nodules, or pleural effusions. Old left-sided rib fractures. IMPRESSION: No acute findings. Dictated by: Audi Funk MD 12/24/2020 05:49 Audi Funk MD in [place] 12/24/2020 05:49
--- NOTE | 2020-12-23 21:53 | HMH.EDGENADL ---
ED Disposition Clinical Impression: Arterial insufficiency of lower extremity, Tobacco dependence, Overweight (BMI 25.0-29.9), Renal insufficiency, Neuropathy HTN (hypertension) Qualifiers: Hypertension type: essential hypertension Qualified Code(s): I10 - Essential (primary) hypertension Disposition: Admitted As Inpatient Condition on Discharge: Fair - Critical Care Critical Care Time: No Attestation: On 12/23/20, the high probability of a clinically significant, sudden or life threatening deterioration of the following system(s) required my full and direct attention, intervention and personal management. The time I documented below is in addition to time spent performing reported procedures but includes the following listed in this critical care notation. Medical Decision Making - Medical Records Medical records reviewed: Yes: I reviewed the patient's medical records. - Damaso Inquiry Pt receiving controlled substance: No Vital Signs: 12/23/20 21:10 Temperature 98.3 F Temperature Source Oral Pulse Rate [Right Brachial] 80 Respiratory Rate 16 Blood Pressure [Right Arm] 150/66 H Blood Pressure Mean [Right Arm] 94 Blood Pressure Source [Right Arm] Automatic Cuff Blood Pressure Position [Right Arm] Supine 02 Sat by Pulse Oximetry 97 Oxygen Delivery Method Room Air - Lab Data Lab results reviewed: Yes: I reviewed the patient's lab results. Lab Results 12/23/20 21:45: WBC 11.5 H, RBC 4.40, Hgb 12.4, Hct 39.7, MCV 90.4, MCH 28.1, MCHC 31.1 L, RDW 14.4, Plt Count 402, MPV 7.2 L, Neut % (Auto) 64.0, Lymph % (Auto) 26.5, [place] % (Auto) 5.7, Eos % (Auto) 2.9, Baso % (Auto) 0.8, Neut # (Auto) 7.4, Lymph # (Auto) 3.1, [place] # (Auto) 0.7, Eos # (Auto) 0.3, Baso # (Auto) 0.1 12/23/20 21:45: APTT 27.1 12/23/20 21:45: Sodium 138, Potassium 4.4, Chloride 105, Carbon Dioxide 25, Anion Gap 12.4, BUN 21 H, Creatinine 1.30 H, Estimated Creat Clear 51, Estimated GFR 43 L, Est GFR ( Amer) 51 L, Glucose 92, Calcium 10.1, Troponin I < 0.01 12/23/20 21:45: PT 11.2, INR 0.95 12/23/20 21:45: Total Bilirubin 0.4, Direct Bilirubin 0.2, Conjugated Bilirubin 0.0, Indirect Bilirubin 0.2, Unconjugated Bilirubin 0.2, AST 28, ALT 11 L, Alkaline Phosphatase 108, Total Protein 7.9, Albumin 4.9 Result diagrams: 12/23/20 21:45 12/23/20 21:45 Orders (Tests/Meds): ED MEDICATIONS Generic Name Dose Route Start Last Admin Trade Name Freq PRN Reason Stop Dose Admin Heparin Sodium/Dextrose 500 mls @ 34 mls/hr 12/23/20 22:45 12/23/20 22:40 Heparin 25,000 Units In D5w 500ml Premix IV 01/22/21 22:44 40 mls/hr .[id number] CHIQUIS Administration 1,700 UNITS/HR Discontinued Medications Generic Name Dose Route Start Last Admin Trade Name Freq PRN Reason Stop Dose Admin Heparin Sodium (Porcine) 10,000 unit 12/23/20 22:35 12/23/20 22:39 Heparin Sodium 5,000 Unit/Ml Vial IV 12/23/20 22:36 10,000 unit ONCE ONE Administration ORDERS Category Date Time Status XR chest 2V Stat Exams 12/23/20 21:51 Taken Troponin I Q3H Lab 12/24/20 01:00 Ordered Troponin I Q3H Lab 12/24/20 04:00 Ordered - Radiology Data #1 Image(s): Chest Image Reviewed: Yes I reviewed the patient's radiology image Preliminary Findings: Normal/NAD - ECG Data Tracing #1 Normal Sinus Rhythm: Yes Ischemic changes: non-specific ST-T wave changes - Physician Consults Physician Consulted: boyd Reason -: Pt condition Medical Decision Narrative: pt with acute ischemia to rt lower ext -will need admit with iv heparin and vascular eval General Adult HPI - General Chief complaint: PAIN Stated complaint: toes are black,rash,cold Time Seen by Provider: 12/23/20 21:15 Mode of Arrival: Ambulatory Source of Information: Patient, Medical Record Limitations: No Limitations Description of Symptoms (Recalled from ER Triage Doc. by RN): Patient reports multiple complaints tonight. Reports red, rash, to abd fold and groin area fo
--- NOTE | 2020-12-23 21:56 | ECG_ITS ---
APPROVED REPORT Exam: Resting ECG HR:72 bpm ECG Measurements Heart Rate 72 AXES TX 160 P 79 QRSd 84 QRS 61 QT 408 T 64 QTc 446 Conclusion Normal sinus rhythm Normal ECG Electronically signed by : Vaibhav Baer, 12/24/2020 19:07:55
[2020-12-23 21:59] LABS: Basophils # 0.1 K/mm3 (0-0.2); Basophils % 0.8 % (0.1-2.0); Eosinophils # 0.3 K/mm3 (0.0-0.4); Eosinophils % 2.9 % (0.1-12.0); Hematocrit 39.7 % (37.0-47.0); Hemoglobin 12.4 g/dL (12.2-16.2); Lymphocytes # 3.1 K/mm3 (0.7-4.5); Lymphocytes % 26.5 % (10-50); Mean Corpuscular HGB Conc 31.1 g/dL (31.8-35.4); Mean Corpuscular Hemoglobin 28.1 pg (27.0-31.2); Mean Corpuscular Volume 90.4 fl (81-99); Mean Platelet Volume 7.2 fl (7.4-10.4); Monocytes # 0.7 K/mm3 (0.1-1.0); Monocytes % 5.7 % (1.7-9.3); Neutrophils # 7.4 K/mm3 (1.8-7.8); Platelet Count 402 K/mm3 (142-424); Red Cell Distribution Width 14.4 % (11.5-17.5); White Blood Count 11.5 K/mm3 (4.8-10.8)
[2020-12-23 22:00] LABS: Chloride 105 mmol/L (98-107); Potassium 4.4 mmoL/L (3.5-5.1); Sodium 138 mmol/L (136-145)
[2020-12-23 22:03] LABS: Anion Gap 12.4 mEq/L (5-15); Blood Urea Nitrogen 21 mg/dl (7-17); Calcium 10.1 mg/dl (8.4-10.2); Carbon Dioxide 25 mmol/L (22.0-30.0); Creatinine Clearance Estimated 51 mL/min (50-200); Estimated Glomerular Filt Rate 43 ml/min (>60); GFR (African American) 51 ML/MIN (>60); Glucose 92 mg/dl (74-100)
[2020-12-23 22:07] LABS: Activated Partial Thrombo Time 27.1 seconds (22.8-30.6)
[2020-12-23 22:16] LABS: Troponin I < 0.01 ng/ml (0.00-0.034)
--- NOTE | 2020-12-23 22:28 | PC.NURSE ---
Notified House for bed assignment.
--- NOTE | 2020-12-23 22:29 | PC.NURSE ---
Pharmacy paged at this time.
--- NOTE | 2020-12-23 22:33 | PC.NURSE ---
Margarito,Pharmacist states 10,000units heparin bolus then 2000units per hour continues infusion. PTT to be drawn Q1H for 4 hours.
[2020-12-23 22:47] LABS: INR 0.95 (0.9-1.1); Prothrombin Time 11.2 seconds (10.1-12.5)
[2020-12-23 23:08] LABS: Bilirubin,Unconjugated 0.2 mg/dL (0.0-1.1)
[2020-12-23 23:09] LABS: Alanine Aminotransferase 11 U/L (12-78); Albumin Level 4.9 g/dl (3.5-5.0); Alkaline Phosphatase 108 U/L (38-126); Aspartate Amino Transferase 28 U/L (14-36); Bilirubin,Direct 0.2 mg/dl (0.0-0.4); Bilirubin,Indirect 0.2 mg/dL (0.0-0.9); Bilirubin,Total 0.4 mg/dl (0.2-1.3); Total Protein,Serum 7.9 g/dl (6.3-8.2)
[2020-12-23 23:26] VITALS: BP 133/72; PULSE 80; RESP 17; TEMP 36.8; O2SAT 98
--- NOTE | 2020-12-23 23:34 | PC.NURSE ---
patient up to floor via wheelchair at this time.
[2020-12-23 23:49] VITALS: BP 139/75; PULSE 71; RESP 17; TEMP 36.6; O2SAT 99; BMI 29.7
[2020-12-24] VITALS (25 sets, daily range): BP systolic 128–166; BP diastolic 69–90; PULSE 60–80; RESP 16–20; TEMP 36.3–36.7; O2SAT 92–99; BMI 29.7
--- NOTE | 2020-12-24 | IR_ITS ---
APPROVED REPORT Patient Location: Inpatient Relief Driller: ILDA Singh RT (R) PROCEDURES Left femoral arterial access Catheter placement in the right superficial femoral artery Right superficial femoral artery antegrade angiogram with unilateral runoff to the right foot Catheter placed in the right common iliac artery Right common iliac artery antegrade iliofemoral angiogram INDICATION Acute right lower extremity ischemia, Limb threatening ischemia Informed consent was obtained prior to the procedure. COMPLICATIONS NONE Estimated Blood Loss: LESS THAN 10 ML TECHNIQUE 1% lidocaine used to anesthetize the left femoral groin. The left femoral artery was accessed via the Seldinger technique. Using fluoroscopic guidance a rim catheter was used to cannulate the right common iliac artery and then advanced down into the right superficial femoral artery. There, unilateral runoff was performed to the right foot. After the unilateral runoff the catheter was then pulled back into the right common iliac artery where right common iliac artery and iliofemoral angiography was performed. After the diagnostic angiogram the apparatus was removed the groin was reprepped closure changed sheath was removed good hemostasis was achieved using Perclose device patient was transferred to the postop holding in stable condition ANGIOGRAPHIC RESULTS The right common internal and external iliac arteries are normal The right common femoral artery is normal The right profunda femoris artery is normal The right superficial femoral artery is widely patent and has proximal concentric 30% stenosis The right popliteal artery has mild nonflow limiting atheromatous plaque The right peroneal artery is a large caliber vessel and supplies the proximal two thirds of the calf. The distal third appears to be occluded most likely from small vessel disease as opposed to overt thrombus. The right posterior tibialis artery is proximally occluded. The right anterior tibialis artery is patent in the one third of the calf and then slowly tapers into the subtotal occlusion. IMPRESSION Small vessel vasculopathy as described above Acute on chronic right lower extremity ischemia PLAN 1. There has been interval improvement in the leg since admission. I would recommend heparin for the next 24 hours and then switch to Xarelto 2.5 p.o. twice daily combined with aspirin 81 mg daily. At this point I do not see any evidence of thrombosis and this appears to be from small vessel vasculopathy. 2. Avoidance of tobacco products 3. LDL less than 55 4. Physical therapy 5. Risk factor modification for polyvascular disease Electronically signed by : Wilfredo Dia, 12/24/2020 10:02:59
[2020-12-24 01:35] LABS: Troponin I < 0.01 ng/ml (0.00-0.034)
[2020-12-24 02:37] LABS: Activated Partial Thrombo Time 118.2 seconds (22.8-30.6)
--- NOTE | 2020-12-24 02:41 | PC.NURSE ---
Rachell Jacob called about PTT result, no change ordered for heparin gtt.
--- NOTE | 2020-12-24 04:25 | PC.NURSE ---
0127- Lab called to report PTT result, stated the [facility] machine was unable to result PTT at this time. Another PTT was drawn at this time. Pharmacy notified. 0416- Lab called again to report the machine would not result the 0230 or 0330 PTT. Pharmacy was notified, Rachell Jacob ordered the heparin gtt be turned off for one hour, and PTT redrawn at 0530, and heparin gtt be restarted at 2000units/hr afterwards.
[2020-12-24 04:40] LABS: Troponin I < 0.01 ng/ml (0.00-0.034)
--- NOTE | 2020-12-24 07:12 | P.CONPHA_ITS ---
[facility] Pharmacy VTE Monitoring - Patient Demographics Admission date: 12/23/20 Report Date: 12/24/20 Time: 07:13 Allergies/Adverse Reactions: Patient Allergies Sulfa (Sulfonamide Antibiotics) [SULFA (SULFONAMIDE ANTIBIOTICS)] Allergy (Unknown, Verified 11/22/20 11:14) Height: 1.75 m Weight: 91.172 kg Patient Problems: Current Active Problems Tobacco dependence (Acute) Arterial insufficiency of lower extremity (Acute) Renal insufficiency (Acute) HTN (hypertension) (Acute) Overweight (BMI 25.0-29.9) (Acute) Neuropathy (Chronic) - VTE Risk Labs: VTE Related Lab Results Hgb 12.4 g/dL (12.2-16.2) 12/23/20 21:45 Hct 39.7 % (37.0-47.0) 12/23/20 21:45 Plt Count 402 K/mm3 (142-424) 12/23/20 21:45 PT 11.2 seconds (10.1-12.5) 12/23/20 21:45 INR 0.95 (0.9-1.1) 12/23/20 21:45 APTT TNP 12/24/20 02:53 BUN 21 mg/dl (7-17) H 12/23/20 21:45 Creatinine 1.30 mg/dl (0.52-1.04) H 12/23/20 21:45 Estimated Creat Clear 51 mL/min (50-200) 12/23/20 21:45 VTE Risk Level: Moderate Risk - Prophylaxis VTE Prophylaxis Ordered?: Yes Types of VTE Prophylaxis: TEDS Knee High, Pharmacological Location of Applied Device: Bilateral Lower Extremeties Pharmacologic Type: Heparin
[2020-12-24 07:23] LABS: Activated Partial Thrombo Time 169.1 seconds (22.8-30.6)
--- NOTE | 2020-12-24 07:30 | PC.NURSE ---
Heparin gtt titrated to 1700 U/HR at this time per Adam Vuong (Pharmacy)
[2020-12-24 08:06] LABS: Chloride 108 mmol/L (98-107); Potassium 4.2 mmoL/L (3.5-5.1); Sodium 136 mmol/L (136-145)
[2020-12-24 08:09] LABS: Anion Gap 10.2 mEq/L (5-15); Blood Urea Nitrogen 20 mg/dl (7-17); Calcium 9.3 mg/dl (8.4-10.2); Carbon Dioxide 22 mmol/L (22.0-30.0); Creatinine Clearance Estimated 76 mL/min (50-200); Estimated Glomerular Filt Rate 47 ml/min (>60); GFR (African American) 56 ML/MIN (>60); Glucose 100 mg/dl (74-100); Magnesium 1.8 mg/dl (1.6-2.3)
--- NOTE | 2020-12-24 08:12 | HMH.CNCARD ---
History of Present Illness Consult date: 12/24/20 Requesting physician: Layo Yoo Chief complaint: right foot pain Additional Medical History:: 1. Tobacco use, ongoing A. COPD 2. Hypertension, treated for about 6 months 3. History of right breast cancer status post nodule and lymph node resection, radiation therapy and oral chemotherapy approximately 6 years ago 4. History of uterine cancer status post partial hysterectomy, age 21 5. Anxiety/depression History of present illness: 55-year-old white female with onset of right foot pain yesterday presented to the emergency department for evaluation. In talking with Dr. Yoo, ER MD, patient's foot was pale and cold and she was started on IV heparin. Overnight the pain has improved but not resolved and the foot has now gone from pale to reddish-pink. Pulses are still not appreciated in the right foot compared to the left. Patient denies any chest pain, pressure or tightness. She denies diabetes but has been treated for hypertension for about 6 months. She does continue to smoke about a half a pack per day. Cardiology consulted for evaluation recommendations. [facility] History Medical History: Reports:: Anxiety, Cancer, Chronic Obstructive Pulmonary Disease (COPD), Depression, Hyperlipidemia, Hypertension, Migraine Denies:: Diabetes Mellitus Type 1, Diabetes Mellitus Type 2 *Have you ever received a pneumonia vaccine?: Yes *Have you received a flu vaccine this season?: Yes Other Medical History: Reports: Anemia, Arthritis, Other Laterality Cases: Right: Lumpectomy, Bilateral: Tonsillectomy Other Surgeries: Yes: No Previous Surgery, Cancer Surgery (cervical), Colonoscopy, Hysterectomy-Partial, Other Amputation: No Fractures: No - *Social History Last grade of school completed: GED Smoking Status: Current every day smoker Tobacco Type: cigarettes # Packs/Day (cigarettes): 1 Alcohol Intake: former Substance Use Type: heroin Last Used Substance: days (ago) *Occupational Status:: disabled Housing: apartment Household Members: family *Travel in the last 8 weeks: None - Psychiatric History Pschychiatric History:: Reports:: Anxiety, Depression Family Hx:: No significant family history Meds Home Medications Medication Instructions Recorded Confirmed Type Fluticasone Propionate [Flonase 1 spr NS DAILY 04/06/20 12/07/20 History 50mcg nasal spray 16gm] hydroxyzine HCl 25 mg tablet 25 mg PO TIDP PRN #90 tab 09/09/20 12/24/20 Rx ciclopirox 8 % topical solution 1 applic TOPICAL DAILY 90 Days 10/25/20 10/25/20 Rx #6.6 ml fluticasone furoate 100 1 inh INHALATION DAILY #60 each 11/08/20 12/23/20 Rx mcg-vilanterol 25 mcg/dose inhalation powder albuterol sulfate 90 mcg/actuation 1 inh INHALATION DAILY #18 g 12/07/20 12/07/20 Rx aerosol inhaler gabapentin 800 mg tablet 800 mg PO TID 30 Days #90 tab 12/07/20 12/24/20 Rx cyclobenzaprine 10 mg tablet 10 mg PO TID PRN #60 tab 12/09/20 12/24/20 Rx Atorvastatin Calcium [Lipitor 10mg 10 mg PO HS 12/23/20 12/24/20 History Tab] Buspirone HCl [Buspar 5mg tablet] 5 mg PO BID 12/23/20 12/24/20 History Lisinopril/Hydrochlorothiazide 10 mg PO DAILY 12/23/20 12/24/20 History [Lisinopril-Hctz 10-12.5 mg Tab] Loratadine [Allergy Relief] 10 mg PO DAILY 12/23/20 12/24/20 History Permethrin 1 applic TOPICAL Q7D 12/23/20 History Sertraline HCl [Zoloft] 100 mg PO DAILY 12/23/20 12/24/20 History Trazodone HCl 100 mg PO HS 12/23/20 12/24/20 History Meloxicam 7.5 mg PO DAILY 12/24/20 12/24/20 History Allergies Allergy/AdvReac Type Severity Reaction Status Date / Time Sulfa (Sulfonamide Allergy Unknown Verified 11/22/20 11:14 Antibiotics) [SULFA (SULFONAMIDE ANTIBIOTICS)] Exam Vital signs and Labs for Last 24 Hours: Temp Pulse Resp BP Pulse Ox 97.8 F 62 20 136/74 96 12/24/20 07:36 12/24/20 07:36 12/24/20 07:36 12/24/20 07:36 12/24/20 07:36 Laboratory Results - last 24 hr
[2020-12-24 08:15] LABS: Basophils # 0.1 K/mm3 (0-0.2); Basophils % 0.6 % (0.1-2.0); Eosinophils # 0.4 K/mm3 (0.0-0.4); Eosinophils % 4.4 % (0.1-12.0); Hematocrit 35.9 % (37.0-47.0); Lymphocytes # 3.3 K/mm3 (0.7-4.5); Lymphocytes % 37.6 % (10-50); Mean Corpuscular HGB Conc 30.6 g/dL (31.8-35.4); Mean Corpuscular Hemoglobin 27.9 pg (27.0-31.2); Mean Corpuscular Volume 91.1 fl (81-99); Mean Platelet Volume 8.5 fl (7.4-10.4); Monocytes # 0.8 K/mm3 (0.1-1.0); Monocytes % 8.6 % (1.7-9.3); Neutrophils # 4.2 K/mm3 (1.8-7.8); Neutrophils % 48.8 % (37.0-80.0); Platelet Count 336 K/mm3 (142-424); Red Blood Count 3.94 M/mm3 (4.20-5.40); Red Cell Distribution Width 14.5 % (11.5-17.5); White Blood Count 8.7 K/mm3 (4.8-10.8)
--- NOTE | 2020-12-24 08:29 | HMH.PHAHEP ---
[facility] Pharmacy Heparin Dosing - Demographic Data Admission date:: 12/23/20 Date: 12/24/20 Time: 08:29 Allergies/Adverse Reactions: Allergies Allergy/AdvReac Type Severity Reaction Status Date / Time Sulfa (Sulfonamide Allergy Unknown Verified 11/22/20 11:14 Antibiotics) [SULFA (SULFONAMIDE ANTIBIOTICS)] Height: 1.75 m Weight: 91.172 kg - Indication Medication therapy:: Heparin Patient Problems: Current Active Problems Tobacco dependence (Acute) Arterial insufficiency of lower extremity (Acute) Renal insufficiency (Acute) HTN (hypertension) (Acute) Dermatitis (Acute) Overweight (BMI 25.0-29.9) (Acute) Neuropathy (Chronic) CVA?: No Bleeding problem?: No Kidney disease?: No LA?: No Desired PTT range:: 50-70 seconds Comments:: PTT 50-75 - Labs Anticoagulation Lab Results:: 12/23/20 12/24/20 21:45 05:56 Hgb 12.4 Hct 39.7 35.9 L Plt Count 402 336 - Monitoring Dose Monitor 1 Date: 12/23/20 Time: 21:45 PTT Result:: 27.1 Infusion Rate:: BASED ON WEIGHT GIVEN OF 130 KG, [place]OM[place] [address] [place] AND HEPARIN DRIP AT 2000 UNITS/HR. Dose Monitor 2 Date: 12/24/20 Time: 01:48 PTT Result:: 118.2 Infusion Rate:: CONTINUE CURRENT Dose Monitor 3 Date: 12/24/20 Time: 02:53 PTT Result:: TNP, MACHINE WOULD NOT READ. Dose Monitor 4 Date: 12/24/20 Time: 03:48 PTT Result:: >190 Infusion Rate:: HAD NURSE HOLD DOSE FOR ONE HOUR, REDRAW PTT, AND RESTART DRIP. Dose Monitor 5 Date: 12/24/20 Time: 05:56 PTT Result:: 169.1 Infusion Rate:: DROP DOSE TO HEPARIN 1700 UNITS/HR, REDRAW AT 0900. Dose Monitor 6 Date: 12/24/20 Time: 08:40 Infusion Rate:: HEPARIN DRIP STOPPED JUST PRIOR TO RUNOFF. HEPARINIZED SALINE 1000 UNITS/500 ML X3 BAGS GIVEN IN CATHLAB DURING PROCEDURE. HEPARIN RESTARTED AFTER RETURNING TO FLOOR. Dose Monitor 7 Date: 12/24/20 Time: 10:45 Infusion Rate:: PATIENT RETURNED TO MED SURG. HEPARIN DRIP RESTARTED AT 1400 UNITS/HR (28 ML/HR) AFTER PROCEDURE. PTT WAS ELEVATED >100 PRIOR TO PROCEDURE. NO REBOLUS DUE TO GETTING HEPARIN 3000 UNITS DURING PROCEDURE. Dose Monitor 8 Date: 12/24/20 Time: 12:30 PTT Result:: 48.3 Infusion Rate:: INCREASE HEPARIN DRIP TO 1550 UNITS/HR. REBOLUS AT 3000 UNITS IV AT ~1300. RECHECK IN 4 HRS. Dose Monitor 9 Date: 12/24/20 Time: 17:30 PTT Result:: 118.2 Infusion Rate:: DECREASE HEPARIN RATE TO 1400 UNITS/HR Dose Monitor 10 Date: 12/24/20 Time: 22:25 PTT Result:: 90.9 Infusion Rate:: DECREASE HEPARIN RATE TO 1250 UNITS/HR Dose Monitor 11 Date: 12/25/20 Time: 06:20 PTT Result:: 65.6 Infusion Rate:: CONTINUE WITH HEPARIN 1250 UNITS/HR. STOPPING AT 1000 THIS AM AND CHANGING TO XARELTO 2.5 MG BID FOR DISCHARGE. - Core Measures Is INR > or = 2 at discharge?: No Most Recent Labs:: Laboratory Results - last 24 hr 12/23/20 21:45: WBC 11.5 H, RBC 4.40, Hgb 12.4, Hct 39.7, MCV 90.4, MCH 28.1, MCHC 31.1 L, RDW 14.4, Plt Count 402, MPV 7.2 L, Neut % (Auto) 64.0, Lymph % (Auto) 26.5, Hidalgo % (Auto) 5.7, Eos % (Auto) 2.9, Baso % (Auto) 0.8, Neut # (Auto) 7.4, Lymph # (Auto) 3.1, Hidalgo # (Auto) 0.7, Eos # (Auto) 0.3, Baso # (Auto) 0.1 12/23/20 21:45: APTT 27.1 12/23/20 21:45: Sodium 138, Potassium 4.4, Chloride 105, Carbon Dioxide 25, Anion Gap 12.4, BUN 21 H, Creatinine 1.30 H, Estimated Creat Clear 51, Estimated GFR 43 L, Est GFR ( Amer) 51 L, Glucose 92, Calcium 10.1, Troponin I < 0.01 12/23/20 21:45: PT 11.2, INR 0.95 12/23/20 21:45: Total Bilirubin 0.4, Direct Bilirubin 0.2, Conjugated Bilirubin 0.0, Indirect Bilirubin 0.2, Unconjugated Bilirubin 0.2, AST 28, ALT 11 L, Alkaline Phosphatase 108, Total Protein 7.9, Albumin 4.9 12/24/20 00:48: Troponin I < 0.01 12/24/20 01:48: APTT 118.2 H* D 12/24/20 02:53: APTT TNP 12/24/20 03:48: APTT 190.0 H* D 12/24/20 03:48: Tropo
--- NOTE | 2020-12-24 08:47 | CA_ITS ---
APPROVED REPORT EXAM: Comprehensive 2D, Doppler, and color-flow Echocardiogram Program Trainer: Patricia Jones RT(R) Ht: 5 ft 9 in Wt: 202lbs BSA: 2.07 BP: 150/66 mmHg Indications: RLE arterial insufficiiency, COPD, smoker, HTN, hyperlipidemia, obesity 2D Dimensions LVOT 2.15 cm (M/F) 1.5-2.5 LA Volume 18.10 mL LA Volume Index 8.70 mL/m2 (M/F) 16-34 M-Mode Dimensions RVDd 1.89 cm (0.9-2.6) LA Diam 2.74 cm (1.9-4.0) LVDd 4.46 cm (3.5-5.7) Ao Diam 2.82 cm (2.0-3.7) LVDs 3.90 cm (3.5-5.7) IVSd 0.95 cm (0.6-1.1) PWd 0.87 cm (0.6-1.1) EF (Teich) 27.20% FS 12.60% EDV (Teich) 90.50 mL TAPSE 2.06 (<1.7) ESV (Teich) 65.90 mL LV Diastology E Decel Time 237.00 (160-240 msec) E/A Ratio 0.93 MED E' 13.20 (< 7 cm/sec) E'/MED E' Ratio 5.46 (>14) LAT E' 14.20 (<10 cm/sec) E/LAT E' Ratio 5.08 (>14) Mitral Valve MV E Max Chung. 72.00 (40-130 cm/s) MV A Velocity 77.00 (40-130 cm/s) E/A Ratio 0.93 MV Decel. Time 237.00 (160-240 ms) MV PHT 69.00 ms Left Ventricle Left atrium is normal size, left ventricle is normal size, there is no concentric left ventricular hypertrophy, visually estimated ejection fraction 55% with no regional wall motion abnormality, diastolic parameters are within normal range. Right Ventricle Right atrium and right ventricle are normal size and contractility. Aortic Valve Aortic valve is minimally thickened and fibrosed, there is no aortic stenosis or aortic insufficiency. Mitral Valve Mitral valve grossly normal, there is trace mitral regurgitation. Tricuspid Valve Tricuspid valve grossly normal, there is trace tricuspid regurgitation, tricuspid regurgitation jet velocity is inadequate for calculation of the right ventricular systolic pressure. Pulmonic Valve Pulmonic valve is poorly visualized. Great Vessels Aortic root is normal size. Pericardium No significant pericardial effusion noted. Conclusion 1. Normal left ventricular size, preserved left ventricular systolic function, visually estimated ejection fraction 55% with no regional wall motion abnormality, diastolic parameters are within normal range. 2. Trace mitral and tricuspid regurgitation. 3. No significant pericardial effusion noted. Electronically signed by : Jose Porter, 12/27/2020 09:25:15
--- NOTE | 2020-12-24 09:32 | HMH.PHAINT ---
MEDICATION RECONCILIATION COMPLETED USING EXTERNAL FILL HISTORY AND PHYSICIAN OFFICE NOTE
--- NOTE | 2020-12-24 10:45 | PC.NURSE ---
Heparin gtt titrated to 1400 U/HR at this time per Adam Vuong (Pharmacy)
--- NOTE | 2020-12-24 12:04 | HMH.HP ---
*Admission Date: 12/23/20 *Chief complaint: rt lower ext pain *History of present illness: pt presented to the ed last pm with progressive rt lower ext pain- pt was seen in the ed and noted to have acute art ischemia and was admitted with iv heparin after discussion with card [facility] History I have reviewed the patient's past medical history: Yes Medical History: Reports:: Anxiety, Cancer, Chronic Obstructive Pulmonary Disease (COPD), Depression, Hyperlipidemia, Hypertension, Migraine Denies:: Diabetes Mellitus Type 1, Diabetes Mellitus Type 2 *Have you ever received a pneumonia vaccine?: Yes *Have you received a flu vaccine this season?: Yes Other Medical History: Reports: Anemia, Arthritis, Other Laterality Cases: Right: Lumpectomy, Bilateral: Tonsillectomy Other Surgeries: Yes: No Previous Surgery, Cancer Surgery (cervical), Colonoscopy, Hysterectomy-Partial, Other Amputation: No Fractures: No - *Social History Last grade of school completed: GED Smoking Status: Current every day smoker Tobacco Type: cigarettes # Packs/Day (cigarettes): 1 Alcohol Intake: former Substance Use Type: heroin Last Used Substance: days (ago) *Occupational Status:: disabled Housing: apartment Household Members: family *Travel in the last 8 weeks: None - Psychiatric History Pschychiatric History:: Reports:: Anxiety, Depression Family Hx:: No significant family history Review of Systems - Review of Systems Review of systems:: pertinent systems reviewed and negative unless documented below - Constitutional Denies fever(s) - Eyes Denies change in vision - ENT Denies sinus pressure - *Cardiovascular Denies chest pain - *Respiratory Denies cough - *Gastrointestinal Denies abdominal pain - *Genitourinary Denies blood in urine - *Musculoskeletal Denies joint pain - Integumentary/Breasts Reports other (changes rt foot ), Denies rash - *Neurologic Denies localized weakness, Denies headache(s), Denies tingling/numbness/burning sensations - Psychiatric Denies behavioral changes Meds Home Medications Medication Instructions Recorded Confirmed Type hydroxyzine HCl 25 mg tablet 25 mg PO TIDP PRN #90 tab 09/09/20 12/24/20 Rx fluticasone furoate 100 1 inh INHALATION DAILY #60 each 11/08/20 12/23/20 Rx mcg-vilanterol 25 mcg/dose inhalation powder albuterol sulfate 90 mcg/actuation 1 inh INHALATION DAILY #18 g 12/07/20 12/24/20 Rx aerosol inhaler gabapentin 800 mg tablet 800 mg PO TID 30 Days #90 tab 12/07/20 12/24/20 Rx cyclobenzaprine 10 mg tablet 10 mg PO TID PRN #60 tab 12/09/20 12/24/20 Rx Atorvastatin Calcium [Lipitor 10mg 10 mg PO HS 12/23/20 12/24/20 History Tab] Buspirone HCl [Buspar 5mg tablet] 5 mg PO BID 12/23/20 12/24/20 History Lisinopril/Hydrochlorothiazide 1 tab PO DAILY 12/23/20 12/24/20 History [Lisinopril-Hctz 10-12.5 mg Tab] Loratadine [Allergy Relief] 10 mg PO DAILY 12/23/20 12/24/20 History Sertraline HCl [Zoloft] 100 mg PO DAILY 12/23/20 12/24/20 History Trazodone HCl 100 mg PO HS 12/23/20 12/24/20 History Meloxicam 7.5 mg PO DAILY 12/24/20 12/24/20 History Allergies Allergy/AdvReac Type Severity Reaction Status Date / Time Sulfa (Sulfonamide Allergy Unknown Verified 11/22/20 11:14 Antibiotics) [SULFA (SULFONAMIDE ANTIBIOTICS)] Exam Vital signs and Labs for Last 24 Hours: Temp Pulse Resp BP Pulse Ox 97.7 F 60 16 128/81 97 12/24/20 11:05 12/24/20 11:05 12/24/20 11:05 12/24/20 11:05 12/24/20 11:05 Laboratory Results - last 24 hr 12/23/20 21:45: WBC 11.5 H, RBC 4.40, Hgb 12.4, Hct 39.7, MCV 90.4, MCH 28.1, MCHC 31.1 L, RDW 14.4, Plt Count 402, MPV 7.2 L, Neut % (Auto) 64.0, Lymph % (Auto) 26.5, Garrett % (Auto) 5.7, Eos % (Auto) 2.9, Baso % (Auto) 0.8, Neut # (Auto) 7.4, Lymph # (Auto) 3.1, Garrett # (Auto) 0.7, Eos # (Auto) 0.3, Baso # (Auto) 0.1 12/23/20 21:45: APTT 27.1 12/23/20 21:45: Sodium 138, Potassium 4.4, Chloride 105, Carbon Dioxi
[2020-12-24 12:53] LABS: Activated Partial Thrombo Time 48.3 seconds (22.8-30.6)
--- NOTE | 2020-12-24 13:00 | PC.NURSE ---
Heparin gtt titrated to 1550 U/HR at this time per Adam Vuong (Pharmacy)
--- NOTE | 2020-12-24 15:35 | PC.NURSE ---
Pt has been pleasant and cooperative this shift. A&O X4. Pt is post-RLE peripheral angiogram and has complained of pain X1. Pt received Morphine per MAR with favorable results. LT femoral dressing is C/D/I. No edema noted. Pt is on room air with sats. >90%. Lungs CTA. BLE warm and pink with palpable pulses. Telemetry reveals NSR. Appetite is good and pt eats the majority of all meals. Pt ambulates independently to/from the bathroom and throughout the room. Pt uses the toilet to void clear, yellow urine without issue. No BM this shift. 18 G peripheral IV in the LT forearm is patent and infusing NS @ 50 ML/HR + Heparin @ 31 ML/HR. VSS. Call light within reach. Will continue to monitor.
[2020-12-24 18:00] LABS: Activated Partial Thrombo Time 118.2 seconds (22.8-30.6)
--- NOTE | 2020-12-24 18:00 | PC.NURSE ---
Heparin gtt titrated to 1400 U/HR at this time per Adam Vuong (Pharmacy)
--- NOTE | 2020-12-24 19:30 | PC.NURSE ---
Assessed LLE Groin area at Cath site, no bleeding noted. Will continue to monitor.
--- NOTE | 2020-12-24 22:10 | PC.NURSE ---
Assessed LLE Groin area from cath 12/24/20, no blood noted on Tegaderm or gauze, no hematoma noted. Will continue to monitor.
[2020-12-24 23:00] LABS: Activated Partial Thrombo Time 90.9 seconds (22.8-30.6)
--- NOTE | 2020-12-24 23:21 | PC.NURSE ---
Received call from Margarito Vuong PharmD stating that pt's pTT was 91 and that the Heparin should be lowered to 1250 units per hour. Also requested this RN put the order for the pTT at 0600. Will fax to overnight pharmacy. Placed order for oPP at 0600.
--- NOTE | 2020-12-24 23:40 | PC.NURSE ---
Order for Heparin gtt, 1250 units which is equivalent to 25 mls/Hr. Documented with Cesilia AGUILAR. Will continue to monitor.
[2020-12-25] VITALS: BP 158/89; PULSE 86; PULSE 90; RESP 17; TEMP 36.9; O2SAT 98
--- NOTE | 2020-12-25 01:38 | PC.NURSE ---
Assessed patient Cath site, LLE Groin, no hematoma or bleeding noted. Audible pulse RLE with doppler. Will continue to monitor for any acute changes
[2020-12-25 04:00] VITALS: BP 143/66; PULSE 69; PULSE 70; RESP 17; TEMP 36.8; O2SAT 94
[2020-12-25 05:52] VITALS: BMI 29.7
[2020-12-25 07:28] VITALS: BP 132/69; PULSE 69; RESP 19; TEMP 36.8; O2SAT 96
[2020-12-25 07:28] LABS: Activated Partial Thrombo Time 65.6 seconds (22.8-30.6)
--- NOTE | 2020-12-25 07:44 | PC.NURSE ---
Rec'd call from Margarito Vuong, Serenity D regarding pTT of 65, Stated to keep the Heparin gtt at the same amount, no adjustment required.
[2020-12-25 08:00] VITALS: PULSE 70; O2SAT 96
--- NOTE | 2020-12-25 08:46 | HMH.DCSUM ---
General - General Admission date:: 12/23/20 Discharge date: 12/25/20 HPI HPI: pt presented to the ed last pm with progressive rt lower ext pain- pt was seen in the ed and noted to have acute art ischemia and was admitted with iv heparin after discussion with ansley Hospital Course Hospital Course: pt admitted with acute arterial ischemia to rt loer ext - she was seen in the ed and admitted on heparin - she was seen by card- Tobacco use, ongoing A. COPD 2. Hypertension, treated for about 6 months 3. History of right breast cancer status post nodule and lymph node resection, radiation therapy and oral chemotherapy approximately 6 years ago 4. History of uterine cancer status post partial hysterectomy, age 21 5. Anxiety/depression History of present illness: 55-year-old white female with onset of right foot pain yesterday presented to the emergency department for evaluation. In talking with SASKIA Álvarez MD, patient's foot was pale and cold and she was started on IV heparin. Overnight the pain has improved but not resolved and the foot has now gone from pale to reddish-pink. Pulses are still not appreciated in the right foot compared to the left. Patient denies any chest pain, pressure or tightness. She denies diabetes but has been treated for hypertension for about 6 months. She does continue to smoke about a half a pack per day. Cardiology consulted for evaluation recommendations. ght foot pain with arterial insufficiency, plan to proceed with abdominal aortogram with lower extremity runoff plus/minus intervention as indicated. Continue IV heparin at this time with further recommendations to follow pending results of the angiogram. 2. Hypertension, continue lisinopril/HCTZ at home dosing. Obtain an echocardiogram to evaluate for hypertensive changes. 3. Hyperlipidemia, continue atorvastatin therapy 4. Tobacco use, cessation recommended. 5. Remote history of right breast cancer and uterine cancer status post treatment. IOGRAPHIC RESULTS The right common internal and external iliac arteries are normal The right common femoral artery is normal The right profunda femoris artery is normal The right superficial femoral artery is widely patent and has proximal concentric 30% stenosis The right popliteal artery has mild nonflow limiting atheromatous plaque The right peroneal artery is a large caliber vessel and supplies the proximal two thirds of the calf. The distal third appears to be occluded most likely from small vessel disease as opposed to overt thrombus. The right posterior tibialis artery is proximally occluded. The right anterior tibialis artery is patent in the one third of the calf and then slowly tapers into the subtotal occlusion. IMPRESSION Small vessel vasculopathy as described above Acute on chronic right lower extremity ischemia PLAN 1. There has been interval improvement in the leg since admission. I would recommend heparin for the next 24 hours and then switch to Xarelto 2.5 p.o. twice daily combined with aspirin 81 mg daily. At this point I do not see any evidence of thrombosis and this appears to be from small vessel vasculopathy. 2. Avoidance of tobacco products 3. LDL less than 55 4. Physical therapy 5. Risk factor modification for polyvascular disease Electronically signed by : Wilfredo Dia, 12/24/2020 10:02:59 As noted above, continue heparin until 10 AM tomorrow then discontinue. Start ASA 81 mg daily and Xarelto 2.5 mg BID tomorrow morning. Continue atorvastatin 10 mg daily along with lisinopril/HCTZ 10/12.5 mg daily. OK for discharge tomorrow from cardiology standpoint if leg remains stable. Follow up in office in 1 wk. pt has did well with improvement to rt lower ext with stable vital signs and activity - tolerating diet and will be d/c to use xarelto and asa with tob cessation and close follow up Objective Vital signs: Temp Pulse Resp BP Pulse Ox 98.2 F 69
--- NOTE | 2020-12-25 10:01 | PC.NURSE ---
Pt rang out saying her ride was here and was going to leave her if she did not come down now. This RN gave discharge instructions to pt, pt verbalized understanding. This RN also reminded pt that [facility], and pt stated I have got to go now, I will pick them up when I leave here.
== END 2020-12-25 09:56 | disposition home or self-care (01) | DRG 301 ==
LOC: ER 21:08 → 2ND 23:18
PROVIDERS: Internal Medicine; Orthopaedic Surgery; Admitting Provider Emergency Medicine; Emergency Provider Emergency Medicine; PCP Emergency Medicine; Visit Provider Emergency Medicine
PROC: B41F1ZZ Fluoroscopy of Right Lower Extremity Arteries using Low Osmolar Contrast (ICD-10-PCS; principal; 2020-12-24 12:00)
DX: I70.221 Atherosclerosis of native arteries of extremities with rest pain, right leg (principal); I77.1 Stricture of artery; I10 Essential (primary) hypertension; F17.200 Nicotine dependence, unspecified, uncomplicated; L30.9 Dermatitis, unspecified; J44.9 Chronic obstructive pulmonary disease, unspecified; E78.5 Hyperlipidemia, unspecified; F17.210 Nicotine dependence, cigarettes, uncomplicated; Z71.6 Tobacco abuse counseling; F41.9 Anxiety disorder, unspecified; F32.9 Major depressive disorder, single episode, unspecified; Z85.3 Personal history of malignant neoplasm of breast; Z85.42 Personal history of malignant neoplasm of other parts of uterus; Z88.2 Allergy status to sulfonamides
CPT/HCPCS: 36247; 36415; 71046; 75710; 80048; 80076; 83735; 84484; 85025; 85610; 85730; 93005; 93306; 96365; 99152; 99283; C1725; C1760; C1769; C1894; J1644; Q9966; U0003

== ENCOUNTER → 2021-02-18 12:57 | Outpatient (CLI) | payer MEDICAID, SELFPAY ==
[2021-02-18 14:11] LABS: Basophils # 0.1 K/mm3 (0-0.2); Basophils % 1.1 % (0.1-2.0); Eosinophils # 0.7 K/mm3 (0.0-0.4); Eosinophils % 7.1 % (0.1-12.0); Hematocrit 36.5 % (37.0-47.0); Hemoglobin 11.9 g/dL (12.2-16.2); Lymphocytes # 2.6 K/mm3 (0.7-4.5); Lymphocytes % 27.5 % (10-50); Mean Corpuscular HGB Conc 32.6 g/dL (31.8-35.4); Mean Corpuscular Hemoglobin 28.5 pg (27.0-31.2); Mean Corpuscular Volume 87.3 fl (81-99); Mean Platelet Volume 8.2 fl (7.4-10.4); Monocytes # 0.6 K/mm3 (0.1-1.0); Monocytes % 6.6 % (1.7-9.3); Neutrophils # 5.4 K/mm3 (1.8-7.8); Neutrophils % 57.8 % (37.0-80.0); Platelet Count 513 K/mm3 (142-424); Red Blood Count 4.19 M/mm3 (4.20-5.40); Red Cell Distribution Width 15.3 % (11.5-17.5); White Blood Count 9.4 K/mm3 (4.8-10.8)
[2021-02-18 14:17] LABS: Alanine Aminotransferase 13 U/L (12-78); Albumin/Globulin Ratio 1.4 (1.1-1.8); Alkaline Phosphatase 109 U/L (38-126); Anion Gap 13.6 mEq/L (5-15); Aspartate Amino Transferase 26 U/L (14-36); Bilirubin,Direct 0.3 mg/dl (0.0-0.4); Bilirubin,Total 0.3 mg/dl (0.2-1.3); Blood Urea Nitrogen 16 mg/dl (7-17); Calcium 9.1 mg/dl (8.4-10.2); Carbon Dioxide 21 mmol/L (22.0-30.0); Chloride 109 mmol/L (98-107); Chol/HDL Ratio 5.5 (1-3.5); Cholesterol 271 mg/dl (140-200); Estimated Glomerular Filt Rate 65 ml/min (>60); GFR (African American) 79 ML/MIN (>60); Globulin 2.9 g/dL (1.3-3.2); Glucose 106 mg/dl (74-100); HDL Cholesterol 49 mg/dl (40-60); Hemoglobin A1C 5.3 % (4.0-6.0); Potassium 4.6 mmoL/L (3.5-5.1); Sodium 139 mmol/L (136-145); Total Protein,Serum 6.9 g/dl (6.3-8.2); Triglycerides 235 mg/dl (30-150); VLDL Cholesterol 47 mg/dL (0-40)
[2021-02-18 14:27] LABS: Direct LDL Cholesterol 163.36 mg/dL (100-129)
[2021-02-18 14:34] LABS: 25-OH Vitamin D, Total 20.2 ng/mL (30-100)
[2021-02-18 14:35] LABS: T4 (Thyroxine) 6.5 ug/dl (5.53-11.0)
[2021-02-18 14:47] LABS: Thyroid Stimulating Hormone 5.36 uIU/mL (0.465-4.68)
[2021-02-18 14:49] LABS: Erythrocyte Sedimentation Rate 20 mm/hr (0-30)
[2021-02-18 14:57] LABS: Iron 90 ug/dL (37-170)
== END ==
PROVIDERS: Visit Provider Nurse Practitioner Family
DX: G62.9 Polyneuropathy, unspecified (principal); E55.9 Vitamin D deficiency, unspecified; D64.9 Anemia, unspecified; Z79.899 Other long term (current) drug therapy
CPT/HCPCS: 80053; 80061; 80076; 82306; 83036; 83540; 84436; 84443; 85025; 85651

== ENCOUNTER → 2021-06-23 16:32 | Outpatient (CLI) | payer MEDICAID, SELFPAY ==
--- NOTE | 2021-06-23 16:32 | MR_ITS ---
PROCEDURE: MR LUMBAR SPINE WO CON CLINICAL INDICATION: Abd BLE EMG/NCV Right foot numbness low back, right leg pain numbness and COMPARISON: MR JUNIOR QA ANALYST/O MRI-L-SPINE W/O from 06/10/2014 MR MR KNEE LT WO CON from 11/12/2019 TECHNIQUE: Standard multiplanar multiecho sequences are performed without contrast. 3-D MIP and myelographic images are also rendered and reviewed FINDINGS: There is normal alignment. The spinal cord ends the L1 level. T11-T12: Mild degenerative disc disease. Minimal left paracentral disc protrusion with annular fissure with mild left lateral recess narrowing. L1-L2: Unremarkable. L2-L3: Mild facet and ligamentum hypertrophy. Mild bilateral lateral recess narrowing. L3-L4: Bulging disc with facet and ligamentum hypertrophy. The bulging disc is is eccentric to the right and to the left with only minimal bulging centrally greater toward the right with moderate right lateral recess narrowing and moderate right foraminal narrowing. There is mild left lateral recess and foraminal narrowing. L4-5: Minimal bulging disc with facet and ligamentum hypertrophy with bilateral lateral recess and foraminal narrowing L5-S1: Facet and ligamentum hypertrophy IMPRESSION: Multilevel lumbar spondylosis with bulging disc and moderate facet and ligamentum hypertrophic changes with lateral recess and foraminal narrowing. This is greatest at the L3-L4 level. Please see above for detailed description at each level. No extruded herniated disc or canal stenosis Dictated by: Audi Funk MD 06/24/2021 16:22 Audi Funk MD in [place] 06/24/2021 16:22
--- NOTE | 2021-06-23 16:32 | MR_ITS ---
PROCEDURE: MR SACRUM WO CON CLINICAL INDICATION: Abd EMG/NCV Right foot numbness low back left greater COMPARISON: CT ABDPELW CT ABD PELVIS W/ CONTRAST from 04/03/2016 CT ABDPELW/O CT ABD PELVIS W/O CONTRAST from 06/26/2017 TECHNIQUE: Routine multiplanar multi echo sequences are performed without gadolinium enhancement. FINDINGS: No fracture or dislocation. No bony destructive process. The SI joints have an unremarkable appearance. There is anterior angulation of the coccyx. There is minimal anterior subluxation of the coccyx approximately 4 mm. These are chronic findings. IMPRESSION: 1. No acute finding. 2. Anterior angulation and minimal anterior subluxation of the coccyx. These are chronic findings. Dictated by: Audi Funk MD 06/26/2021 08:12 Audi Funk MD in [facility] 06/26/2021 08:12
== END ==
PROVIDERS: PCP Nurse Practitioner Family; Visit Provider Nurse Practitioner Family
DX: R20.0 Anesthesia of skin (principal); R20.2 Paresthesia of skin; M79.604 Pain in right leg; M79.605 Pain in left leg
CPT/HCPCS: 72148; 72195; 76376

== ENCOUNTER → 2021-08-08 10:41 | Outpatient (POV) | payer MEDICAID, SELFPAY ==
[2021-08-08 11:28] VITALS: BP 176/96; PULSE 83; RESP 18; O2SAT 97; BMI 31.0
--- NOTE | 2021-08-08 11:41 | HMH.PMCON ---
Assessment and Plan (1) Degenerative joint disease (DJD) of lumbar spine Status: Chronic Category: Medical Code(s): M47.816 - Spondylosis without myelopathy or radiculopathy, lumbar region (2) Lumbar radiculopathy Status: Chronic Category: Medical Code(s): M54.16 - Radiculopathy, lumbar region (3) Neurogenic claudication Status: Chronic Category: Medical Code(s): G95.19 - Other vascular myelopathies - Assessment and plan all Dx Assessment and Plan for all problems:: Patient is consulted for low back pain with bilateral lower extremity pain as well as paresthesia right lower extremity. She is exhibiting neurogenic claudication type symptoms with heaviness and weakness bilateral lower extremities. She has not had any injective therapy. The patient has tried physical therapy for more than 6 weeks and continues with home stretching. She has taken excessive doses of ibuprofen which now caused GI upset. Patient does have an MRI and per report patient is noted to have bulging disc at L3-L4 with facet and ligamentum hypertrophy. Patient is also noted per MRI report at L3-L4 to have lateral recess and foraminal narrowing. We will schedule her for lumbar epidural steroid injection at L3-L4 area. She is not on any anticoagulation therapy. She will continue with home stretching has been advised to use caution using excessive doses of ibuprofen. We will plan to see the patient back in the clinic after the injection for further evaluation. She is not diabetic. Possible side effects of corticosteroids have been discussed with the patient. Risks and benefits of the procedure have been explained to the patient. Patient would like to proceed with the procedure. Patient has been instructed to contact the clinic with any concerns before the next appointment. Dr. Brownlee has reviewed this note and agrees with this plan of care. This note was dictated using voice recognition software and make contain errors or omissions. HPI - Data of Consult Patient: new to practice Consult date: 08/08/21 Requesting Physician: Jennifer Delgado APRN - Consult Narrative Reason for consult: Low back pain right lower extremity pain with numbness and tingling History of present illness: Ms. Christie is a 56 year old female who presents today for consultation for low back pain and right lower extremity pain with numbness and tingling. Patient says she has had more than 20 years of low back pain, but reports over the last 9 months to have began having numbness tingling with hvyt-[id number]-like sensation into the right foot and lower extremity. She says that it has progressively worsened. The pain in the patient's low back is sharp in nature that causes her to become incapacitated and pain presents. She says that she has worsening pain with standing, walking, and sitting. The only time she gets relief is when lying flat. She says she has taken excessive doses of ibuprofen causing her to now have GI upset. She does report leaning forward also gives her significant relief. She has a cold sensation in her right foot but also has a vrut-iie-rynevnt-like sensation. She says she does have pain into bilateral lower extremities as well as bilateral buttock. She says the pain is worse, however, to the right leg. She has tried physical therapy in the past with little to no relief for more than 6 weeks. She is having GI upset from anti-inflammatories. She did have an MRI completed on 06/23/2021. She has not had any injective therapy. The patient is currently on gabapentin 800 mg 1 tablet p.o. 3 times daily. She denies any saddle anesthesia or any changes in bowel or bladder habit. CC: Jennifer Delgado APRN [facility] History I have reviewed the patient's past medical history: Yes Medical History: Reports:: Anxiety, Cancer, Chronic Obstructive Pulmonary Disease (COPD), Depression, Hyperlipidemia, Hypertension, Migraine Denies:: Diabetes Mellitus Type 1, Diabetes
== END ==
PROVIDERS: Visit Provider Clinical Nurse Specialist Family Health
DX: M47.896 Other spondylosis, lumbar region (principal); M54.16 Radiculopathy, lumbar region; G95.19 Other vascular myelopathies
CPT/HCPCS: 99202; G0463

== ENCOUNTER 2021-08-19 14:47 | Day surgery (SDC) | payer MEDICAID, SELFPAY ==
--- NOTE | 2021-08-19 15:11 | [facility].PMPROC ---
- Procedure Date: 08/19/21 Time: 15:11 Anesthesiologist:: Shivani Rangel MD Complications:: None Pre-procedure Diagnosis:: Degenerative disc disease of the lumbar spine with lumbar radiculopathy Post-procedure Diagnosis:: Same Indications for Procedure:: Same Procedure Details:: Informed consent was obtained and the risk and benefits of the procedure was explained to the patient. The patient was taken to the procedure room. The patient was placed prone on the procedure table. The patient was prepped and draped in sterile fashion. C-arm fluoroscopy was used to view the lumbar spine. Skin and subcutaneous tissues were anesthetized using lidocaine. I placed an 18-gauge epidural needle and advanced into the L5-S1 interspace using fluoroscopic guidance and [id number] to air and saline. After confirmation of needle placement in the epidural space with dye I injected 1 mL of lidocaine 1.0% with Depo-Medrol 80 mg. Patient tolerated the procedure well with no complications. Plan and Disposition:: We will follow with this patient in 2 weeks. Will reevaluate symptoms at that time.
[2021-08-19 15:12] VITALS: BP 168/96; PULSE 82; RESP 20; TEMP 36.8; O2SAT 100; BMI 29.5
[2021-08-19 15:20] VITALS: BP 163/85; PULSE 85; RESP 18; O2SAT 100
[2021-08-19 15:22] VITALS: PULSE 84; RESP 18; O2SAT 99
[2021-08-19 15:45] VITALS: BP 170/99; PULSE 81; RESP 20; O2SAT 99
== END 2021-08-19 15:45 | disposition home or self-care (01) ==
LOC: SC.PAINP 14:48
PROVIDERS: PCP Nurse Practitioner Family; Visit Provider Anesthesiology Pain Medicine
DX: M51.16 Intervertebral disc disorders with radiculopathy, lumbar region (principal); G43.909 Migraine, unspecified, not intractable, without status migrainosus; E78.5 Hyperlipidemia, unspecified; I10 Essential (primary) hypertension; J44.9 Chronic obstructive pulmonary disease, unspecified; Z72.0 Tobacco use; K21.9 Gastro-esophageal reflux disease without esophagitis; M19.90 Unspecified osteoarthritis, unspecified site; Z88.2 Allergy status to sulfonamides
CPT/HCPCS: 62323; J1040; Q9966

== ENCOUNTER → 2021-09-12 09:22 | Outpatient (POV) | payer MEDICAID, SELFPAY ==
[2021-09-12 09:39] VITALS: BP 183/97; PULSE 87; RESP 18; O2SAT 99; BMI 29.5
--- NOTE | 2021-09-12 09:58 | HMH.PAINSOAP ---
[facility] Pain Management SOAP Note Subjective:: Patient is a 56-year-old white female who presents today for follow-up. The patient was last seen in clinic on 08/19/2021. She did have a lumbar epidural steroid injection. Patient got 4 days of relief, pain did return. She did go to the emergency room at [place]. Patient is noted to have Blood clot right foot and right calf. She was previously on Xarelto but had stopped the medication due to recommendation of her provider. Patient says that she has since been started back on Xarelto. She is having pain right foot and right calf at this time, rating pain 8 out of 10. ORT is high risk due to past medical history of illegal drug use and family illegal drug use Review of Systems General: No recent weight changes, no fever, no sleep disturbances Respiratory: No cough, no shortness of air, no recurring pulmonary infections Cardiovascular/peripheral vascular: No chest pain, no palpitations, no edema, no shortness of breath Gastrointestinal: No new onset incontinence, normal bowel movements reported Genitourinary: No new onset incontinence Musculoskeletal: Right foot pain, right calf pain Psychiatric: [Normal mood/affect] Neurological: Weakness right lower extremity Objective:: Physical exam General: Alert and oriented x3, no acute distress, pleasant and cooperative Lungs: Respirations even and unlabored, symmetrical chest expansion Eyes: PERRL Musculoskeletal: Flexion and extension of right lower extremity somewhat guarded secondary to pain, [antalgic gait noted] Neurological: Speech clear, no gross sensory deficit Skin: Foot red and cool to touch, painful to palpation Assessment:: Degenerative disc disease lumbar spine with lumbar radiculopathy symptoms, right foot pain, right calf pain Plan:: Patient's ORT is high risk due to history of family and personal illegal drug use. Unfortunately, we cannot prescribe the patient any oral medications at this time. We can order the patient compounding cream to apply topically to her foot and calf area. She is on Xarelto, we will need to remove diclofenac from the cream. We will plan to follow-up with the patient in 2 weeks for further evaluation. She will be seeing a vascular surgeon this upcoming week. Risks and benefits of the medication have been explained in detail to the patient. If side effects do present with the medication, patient has been advised to stop the medication immediately and call the clinic. The patient has been advised to consult with his/her primary care provider and pharmacist regarding drug-drug interaction of medications currently prescribed. Patient has been instructed to contact the clinic with any concerns before the next appointment. Dr. Brownlee has reviewed this note and agrees with this plan of care. This note was dictated using voice recognition software and make contain errors or omissions. [facility] History I have reviewed the patient's past medical history: Yes Medical History: Reports:: Anxiety, Chronic Obstructive Pulmonary Disease (COPD), Depression, Hyperlipidemia, Hypertension, Migraine Denies:: Cancer, Diabetes Mellitus Type 1, Diabetes Mellitus Type 2, MRSA, Seizures *Have you ever received a pneumonia vaccine?: No *Have you received a flu vaccine this season?: No Other Medical History: Reports: Anemia, Arthritis, Other Laterality Cases: Right: Lumpectomy, Bilateral: Tonsillectomy Other Surgeries: Yes: No Previous Surgery, Cancer Surgery, Colonoscopy, Hysterectomy-Partial, Other Amputation: No Fractures: No - *Social History Smoking Status: Current every day smoker Tobacco Type: cigarettes # Packs/Day (cigarettes): 1 Alcohol Intake: never Substance Use Type: heroin *Occupational Status:: unemployed Housing: house Household Members: other *Travel in the last 8 weeks: None - Psychiatric History Pschychiatric History:: Reports:: Anxiety, Depression Family Hx:: Cancer, Diabetes,
== END ==
PROVIDERS: Visit Provider Clinical Nurse Specialist Family Health
DX: M51.16 Intervertebral disc disorders with radiculopathy, lumbar region (principal); M79.671 Pain in right foot; M79.661 Pain in right lower leg
CPT/HCPCS: 99212; G0463

== ENCOUNTER → 2021-09-19 16:06 | Outpatient (CLI) | payer MEDICAID, SELFPAY | PROVIDERS: Visit Provider Nurse Practitioner | DX: Z20.822 Contact with and (suspected) exposure to COVID-19 (principal) | CPT/HCPCS: C9803; U0003; U0005 ==